=== PATIENT | male | born 1965 | race Caucasian/White ===

== ENCOUNTER 2019-03-12 18:20 | Inpatient (IN) | payer BC ==
--- NOTE | 2019-03-12 18:34 | ER Document Report ---
ED General - General Stated Complaint: HYPOXIA Time Seen by Provider: 03/12/19 18:26 Notes: Patient is a 53-year-old male with CAD, hypertension and hyperlipidemia that presents to the emergency department for chief complaint of respiratory distress after syncopal episode. Per EMS the patient was found by family in the bathroom, is apparently hot there is found to be diaphoretic, and hypoxic, his lips were apparently blue, and he was lethargic. He was apparently in the bathroom and had a large bowel movement and had passed out, there was no air conditioning in that portion of the house per EMS, it is unclear how long he was on the ground for. They placed him on CPAP, and could not get his pulse ox above 77%, they did give him Solu-Medrol as well. Patient is alert and answering questions at this time, he denies having any chest pain, denies recent illness, denies nausea or vomiting, just feels somewhat short of breath and mildly lightheaded. He is currently on the BiPAP. He denies being on any diuretics, denies being on any breathing treatments on a daily basis. Overall he states he is feeling better. Past Medical History: CAD, hypertension, hyperlipidemia Past Surgical History: CABG Social History: Lives at home, denies current alcohol or tobacco use. Family History: Reviewed and noncontributory for presenting illness Allergies: Reviewed, see documented allergy list. REVIEW OF SYSTEMS: Other than noted above, the 12 point review of systems was reviewed with the patient and were negative, all pertinent findings are included in the HPI. PHYSICAL EXAMINATION: Vital signs reviewed, nursing noted reviewed. GENERAL: Patient is in respiratory distress, morbidly obese, currently on CPAP. Diaphoretic HEAD: Atraumatic, normocephalic. EYES: Eyes appear normal, extraocular movements intact, sclera anicteric, conjunctiva are normal. ENT: nares patent, oropharynx clear without exudates. Moist mucous membranes. NECK: Normal range of motion, supple without lymphadenopathy LUNGS: Increased work of breathing, on BiPAP, respiratory distress, diminished lung sounds throughout, crackles noted at the bases. HEART: Heart rate borderline tachycardic, regular rhythm, no audible murmur. ABDOMEN: Soft, obese, nontender, normoactive bowel sounds. No rebound, guarding, or rigidity. No masses appreciated. EXTREMITIES: Nontender, good range of motion, 1+ edema to the proximal tibias bilaterally, equal, no erythema or tenderness. NEUROLOGICAL: No focal neurological deficits. Moves all extremities spontaneously Motor and sensory grossly intact on exam. PSYCH: Normal mood, normal affect. SKIN: Skin is warm, diaphoretic TRAVEL OUTSIDE OF THE [place] IN LAST 30 DAYS: No - Related Data Allergies/Adverse Reactions: No Known Allergies Allergy (Unverified 10/11/15 14:05) Past Medical History - Social History Smoking Status: Never Smoker Family History: Reviewed & Not Pertinent, CVA, Hypertension, Other - OK, Hyperlipidemia. - Past Medical History Cardiac Medical History: Reports: Hx Hypercholesterolemia, Hx Hypertension Physical Exam - Vital signs Vitals: Resp Pulse Ox 32 H 95 03/12/19 18:37 03/12/19 18:37 Course - Re-evaluation Re-evalutation: Patient seen and examined vital signs reviewed. Laboratory data and imaging were ordered as appropriate for the patient's pre senting symptoms and complaint, with consideration of any critical or life threatening conditions that may be associated with their obtained history and exam as noted above. Patient was treated with BiPAP therapy, after reviewing chest x-ray did appear he had a left upper lobe pneumonia, he was started on Zosyn and vancomycin, as this may be aspiration, as the patient was found down, and essentially unresponsive. Results were reviewed when available and demonstrated significant leukocytosis of 19,000, chest x-ray with left upper lobe pneumonia, he had worsened renal function from prior results, but that was back in 2016, his EKG was essentially unchanged from his EKG from 2016. The patient was re-evaluated and was improving on BiPAP, slowly weaning down FiO2, but patient will need admission to the hospital, as he still requiring significant oxygen requirements. Patient's troponin came back at 1.17, this was around where he was 3 years ago, however I believe this is likely due to demand ischemia as the patient was hypoxic at 68% when he was found on the ground and is unclear how long he was down for, patient is not having chest pain and nor did he earlier today, therefore more likely type II non-STEMI. Evaluation was most consistent with acute respiratory failure with hypoxia, pneumonia, leukocytosis, NSTEMI Results were discussed with the patient at this point after careful consideration I feel that that patient should be admitted to the hospital. This was discussed with the patient that it is in the best interest for their care to be admitted for further evaluation and management. Patient agreed with this plan of care. A call was placed to the admitting physician, Dr. Mckeon who graciously accepted the patient onto their service. *Note is created using voice recognition software and may contain spelling, syntax or grammatical errors. Laboratory 03/12/19 03/12/19 03/12/19 18:26 18:26 18:26 WBC 19.7 H RBC 5.06 Hgb 14.2 Hct 43.4 MCV 86 MCH 28.1 MCHC 32.7 RDW 16.2 H Plt Count 272 Seg Neutrophils % 76.0 Lymphocytes % 15.5 Monocytes % 7.5 Eosinophils % 0.2 Basophils % 0.8 Absolute Neutrophils 15.0 H Absolute Lymphocytes 3.1 Absolute Monocytes 1.5 H Absolute Eosinophils 0.0 Absolute Basophils 0.2 PT 15.0 INR 1.17 Carbonic Acid HCO3/H2CO3 Ratio ABG pH ABG pCO2 ABG pO2 ABG HCO3 ABG Total CO2 ABG O2 Saturation ABG Base Excess FiO2 Sodium 134.5 L Potassium 4.2 Chloride 98 Carbon Dioxide 23 Anion Gap 14 BUN 31 H Creatinine 2.35 H Est GFR ( Amer) 35 L Est GFR (Non-Af Amer) 29 L Glucose 202 H Lactic Acid Calcium 8.5 Total Bilirubin 0.9 Direct Bilirubin 0.4 Neonat Total Bilirubin Not Reportable Neonat Direct Bilirubin Not Reportable Neonat Indirect Bili Not Reportable AST 31 ALT 28 Alkaline Phosphatase 73 Troponin I Total Protein 6.1 L Albumin 3.4 L Urine Color Urine Appearance Urine pH Ur Specific [place] Urine Protein Urine Glucose (UA) Urine Ketones Urine Blood Urine Nitrite Urine Bilirubin Urine Urobilinogen Ur Leukocyte Esterase Urine WBC (Auto) Urine RBC (Auto) U Hyaline Cast (Auto) Urine Bacteria (Auto) Squamous Epi Cells Auto Urine Mucus (Auto) Urine Ascorbic Acid 03/12/19 03/12/19 03/12/19 18:26 18:26 18:48 WBC RBC Hgb Hct MCV MCH MCHC RDW Plt Count Seg Neutrophils % Lymphocytes % Monocytes % Eosinophils % Basophils % Absolute Neutrophils Absolute Lymphocytes Absolute Monocytes Absolute Eosinophils Absolute Basophils PT INR Carbonic Acid HCO3/H2CO3 Ratio ABG pH ABG pCO2 ABG pO2 ABG HCO3 ABG Total CO2 ABG O2 Saturation ABG Base Excess FiO2 Sodium Potassium Chloride Carbon Dioxide Anion Gap BUN Creatinine Est GFR ( Amer) Est GFR (Non-Af Amer) Glucose Lactic Acid 2.8 H Calcium Total Bilirubin Direct Bilirubin Neonat Total Bilirubin Neonat Direct Bilirubin Neonat Indirect Bili AST ALT Alkaline Phosphatase Troponin I 1.170 Total Protein Albumin Urine Color ALEX Urine Appearance CLOUDY Urine pH 5.0 Ur Specific [place] 1.021 Urine Protein 100 H Urine Glucose (UA) NEGATIVE Urine Ketones NEGATIVE Urine Blood MODERATE H Urine Nitrite NEGATIVE Urine Bilirubin NEGATIVE Urine Urobilinogen 2.0 H Ur Leukocyte Esterase NEGATIVE Urine WBC (Auto) 8 Urine RBC (Auto) 6 U Hyaline Cast (Auto) 19 Urine Bacteria (Auto) TRACE Squamous Epi Cells Auto 1 Urine Mucus (Auto) OCC Urine Ascorbic Acid NEGATIVE 03/12/19 19:00 WBC RBC Hgb Hct MCV MCH MCHC RDW Plt Count Seg Neutrophils % Lymphocytes % Monocytes % Eosinophils % Basophils % Absolute Neutrophils Absolute Lymphocytes Absolute Monocytes Absolute Eosinophils Absolute Basophils PT INR Carbonic Acid 1.34 HCO3/H2CO3 Ratio 18:1 ABG pH 7.35 ABG pCO2 44.5 ABG pO2 86.1 ABG HCO3 24.2 H ABG Total CO2 25.6 ABG O2 Saturation 96.1 ABG Base Excess -1.5 FiO2 100% Sodium Potassium Chloride Carbon Dioxide Anion Gap BUN Creatinine Est GFR ( Amer) Est GFR (Non-Af Amer) Glucose Lactic Acid Calcium Total Bilirubin Direct Bilirubin Neonat Total Bilirubin Neonat Direct Bilirubin Neonat Indirect Bili AST ALT Alkaline Phosphatase Troponin I Total Protein Albumin Urine Color Urine Appearance Urine pH Ur Specific [place] Urine Protein Urine Glucose (UA) Urine Ketones Urine Blood Urine Nitrite Urine Bilirubin Urine Urobilinogen Ur Leukocyte Esterase Urine WBC (Auto) Urine RBC (Auto) U Hyaline Cast (Auto) Urine Bacteria (Auto) Squamous Epi Cells Auto Urine Mucus (Auto) Urine Ascorbic Acid Chest X-Ray 03/12/19 18:27 IMPRESSION: Left upper lobe pneumonia. - Vital Signs Vital signs: Temp Pulse Resp BP Pulse Ox 32 H 95 03/12/19 18:37 03/12/19 18:37 - Laboratory Result Diagrams: 03/12/19 18:26 03/12/19 18:26 Laboratory results interpreted by me: 03/12/19 03/12/19 03/12/19 18:26 18:26 18:26 WBC 19.7 H RDW 16.2 H Absolute Neutrophils 15.0 H Absolute Monocytes 1.5 H ABG HCO3 Sodium 134.5 L BUN 31 H Creatinine 2.35 H Est GFR ( Amer) 35 L Est GFR (Non-Af Amer) 29 L Glucose 202 H Lactic Acid 2.8 H Total Protein 6.1 L Albumin 3.4 L Urine Protein Urine Blood Urine Urobilinogen 03/12/19 03/12/19 18:48 19:00 WBC RDW Absolute Neutrophils Absolute Monocytes ABG HCO3 24.2 H Sodium BUN Creatinine Est GFR ( Amer) Est GFR (Non-Af Amer) Glucose Lactic Acid Total Protein Albumin Urine Protein 100 H Urine Blood MODERATE H Urine Urobilinogen 2.0 H - EKG Interpretation by Me Additional EKG results interpreted by me: EKG demonstrates sinus rhythm with a ventricular rate of 97 bpm, normal axis, normal intervals, there is ST depression in leads I and aVL, no ST elevation, this is compared with a prior EKG from 10/11/2015, without significant change. Critical Care Note - Critical Care Note Total time excluding time spent on procedures (mins): 38 Comments: Critical care time 38 minutes exclusive from separate billable procedures for a patient requiring complex medical decision making, and high potential for clinical deterioration. In a patient with acute respiratory failure requiring noninvasive positive pressure ventilation, severe hypoxia. Time spent obtaining history from patient or surrogate, discussions with consultants, development of treatment plan with patient or surrogate, evaluation of patient's response to treatment, examination of patient, ordering and performing treatments and interventions, ordering and review of laboratory studies, re-evaluation of patient's condition, ordering and review of radiographic studies and review of old charts Discharge - Discharge Clinical Impression: Acute respiratory failure with hypoxia, NSTEMI (non-ST elevated myocardial infarction) Left upper lobe pneumonia Qualifiers: Pneumonia type: due to unspecified organism Qualified Code(s): J18.1 - Lobar pneumonia, unspecified organism Leukocytosis Qualifiers: Leukocytosis type: unspecified Qualified Code(s): D72.829 - Elevated white blood cell count, unspecified Condition: Serious Disposition: ADMITTED INPATIENT Admitting Provider: Mike (Hospitalist) Unit Admitted: ICU
[2019-03-12 18:53] LABS: ABSOLUTE BASOPHILS # (AUTO) 0.2 10^3/uL (0.0-0.2); ABSOLUTE LYMPHOCYTES (AUTO) 3.1 10^3/uL (0.5-4.7); ABSOLUTE MONOCYTES (AUTO) 1.5 10^3/uL (0.1-1.4); BASOPHILS % (AUTO) 0.8 % (0-2); EOSINOPHILS % (AUTO) 0.2 % (0-6); HEMATOCRIT 43.4 % (37.9-51.0); HEMOGLOBIN 14.2 g/dL (13.5-17.0); LYMPHOCYTES % (AUTO) 15.5 % (13-45); MEAN CORPUSCULAR HEMOGLOBIN 28.1 pg (27.0-33.4); MEAN CORPUSCULAR HGB CONC 32.7 g/dL (32.0-36.0); MEAN CORPUSCULAR VOLUME 86 fl (80-97); MONOCYTES % (AUTO) 7.5 % (3-13); PLATELET COUNT 272 10^3/uL (150-450); RED BLOOD COUNT 5.06 10^6/uL (4.35-5.55); RED CELL DISTRIBUTION WIDTH 16.2 % (11.5-14.0); TOTAL CELLS COUNTED % (AUTO) 100 %; WHITE BLOOD COUNT 19.7 10^3/uL (4.0-10.5)
[2019-03-12 18:59] LABS: INTERNATIONAL RATION (INR) 1.17
--- NOTE | 2019-03-12 19:04 | RADIOLOGY REPORT (SQ) ---
EXAM DESCRIPTION: CHEST SINGLE VIEW COMPLETED DATE/TIME: 03/12/2019 6:41 pm REASON FOR STUDY: respiratory distress COMPARISON: None. EXAM PARAMETERS: NUMBER OF VIEWS: One view. TECHNIQUE: Single frontal radiographic view of the chest acquired. RADIATION DOSE: NA LIMITATIONS: None. FINDINGS: LUNGS AND PLEURA: Abnormal airspace opacity with air bronchograms in the left upper lobe. The right lung is clear. MEDIASTINUM AND HILAR STRUCTURES: No masses. Contour normal. HEART AND VASCULAR STRUCTURES: Heart normal in size. Normal vasculature. BONES: No acute findings. HARDWARE: CABG. OTHER: No other significant finding. IMPRESSION: Left upper lobe pneumonia. TECHNICAL DOCUMENTATION: JOB ID: [id number] [employer]- All Rights Reserved Reading location - IP/workstation name: [email or web address]
[2019-03-12 19:08] LABS: ALBUMIN 3.4 g/dL (3.5-5.0); ALKALINE PHOSPHATASE 73 U/L (38-126); ANION GAP 14 (5-19); ASPARTATE AMINO TRANSFERASE 31 U/L (17-59); BILIRUBIN,DIRECT 0.4 mg/dL (0.0-0.4); BILIRUBIN,TOTAL 0.9 mg/dL (0.2-1.3); BLOOD UREA NITROGEN 31 mg/dL (7-20); CALCIUM 8.5 mg/dL (8.4-10.2); CARBON DIOXIDE 23 mmol/L (22-30); CHLORIDE 98 mmol/L (98-107); GLUCOSE 202 mg/dL (75-110); POTASSIUM 4.2 mmol/L (3.6-5.0); TOTAL PROTEIN 6.1 g/dL (6.3-8.2)
[2019-03-12] MEDS ORDERED: PIPERACILLIN/TAZOBACTAM 4.5 GM VIAL IV ONE (19:12)
[2019-03-12] MEDS ORDERED: VANCOMYCIN HCL INJ 1000 MG VIAL IV ONE (19:12)
[2019-03-12 19:16] LABS: APPEARANCE,URINE CLOUDY; BILIRUBIN,URINE NEGATIVE (NEGATIVE); COLOR,URINE AMBER; GLUCOSE, URINE NEGATIVE (NEGATIVE); KETONES,URINE NEGATIVE (NEGATIVE); LEUKOCYTE ESTERASE,URINE NEGATIVE (NEGATIVE); NITRITE,URINE NEGATIVE (NEGATIVE); PROTEIN,URINE 100 mg/dL (NEGATIVE); URINE SPECIFIC GRAVITY 1.021
[2019-03-12 19:21] LABS: ARTERIAL BLOOD BASE EXCESS -1.5 mmol/L; ARTERIAL BLOOD H2CO3 1.34 mmol/L (1.05-1.35); ARTERIAL BLOOD HCO3 24.2 mmol/L (20-24); ARTERIAL BLOOD O2 SATURATION 96.1 % (94-98); ARTERIAL BLOOD PCO2 44.5 mmHg (35-45); ARTERIAL BLOOD PH 7.35 (7.35-7.45); ARTERIAL BLOOD PO2 86.1 mmHg (80-100); ARTERIAL BLOOD TOTAL CO2 25.6 mmol/L (23-27)
[2019-03-12 19:22] LABS: ARTERIAL BLOOD FIO2 100%
[2019-03-12] MEDS ORDERED: ASPIRIN 81 MG TABLET, CHEWABLE PO ONE (19:29)
[2019-03-12] MEDS ORDERED: NORMAL SALINE 500 ML IV ONE (19:30)
--- NOTE | 2019-03-12 19:58 | EKG REPORT ---
SEVERITY:- ABNORMAL ECG - SINUS RHYTHM PROBABLE INFERIOR INFARCT, AGE INDETERMINATE : Confirmed by: Sheila Sage MD 12-Mar-2019 19:58:07
[2019-03-12] MEDS ORDERED: TEMAZEPAM 15 MG CAPSULE PO PRN (20:33)
[2019-03-12] MEDS ORDERED: ONDANSETRON HCL INJ/PF 4 MG/2 ML SDV IV PRN (20:33)
[2019-03-12] MEDS ORDERED: DEXTROSE 5%-LACTATED RINGERS 1,000 ML IV PRN (20:33)
[2019-03-12] MEDS ORDERED: MAG HYDROX/AL HYDROX/SIMETH SUSP 30 ML UDCUP PO PRN (20:33)
[2019-03-12] MEDS ORDERED: LEVALBUTEROL HCL NEB 0.63 MG/3 ML AMPUL NEB PRN (20:33)
[2019-03-12] MEDS ORDERED: MAGNESIUM HYDROXIDE SUSP 30 ML UDCUP PO PRN (20:33)
[2019-03-12] MEDS ORDERED: ACETAMINOPHEN 325 MG TABLET PO PRN (21:01)
[2019-03-12] MEDS ORDERED: RINGERS SOLUTION,LACTATED 1,000 ML IV ONE (21:01)
[2019-03-12] MEDS ORDERED: NALBUPHINE HCL INJ 10 MG/1 ML AMPULE IV PRN (21:01)
[2019-03-12] MEDS ORDERED: FAMOTIDINE INJ/PF 20 MG/2 ML SDV IV SCH (22:00)
[2019-03-12] MEDS: GUAIFENESIN 600 MG TABLET.SA PO SCH (22:11)
[2019-03-12] MEDS: ENOXAPARIN SODIUM INJ 100 MG/1 ML DISP.SYRIN SUBCUT SCH (22:11)
[2019-03-12] MEDS ORDERED: NITROGLYCERIN 0.4 MG/TAB 25 TAB/BOTTLE SL PRN (22:16)
[2019-03-12] MEDS ORDERED: DEXTROSE 40% GEL 15 GM TUBE PO PRN ×2 (23:36)
[2019-03-12] MEDS ORDERED: DEXTROSE 50%-WATER 25 GM/50 ML DISP.SYRIN IV PRN ×2 (23:36)
[2019-03-12] MEDS ORDERED: GLUCAGON,HUMAN RECOMB 1 MG INJ IM PRN (23:36)
[2019-03-13 02:32] LABS: CREATINE KINASE MB 4.76 ng/mL (<4.55)
[2019-03-13 02:38] LABS: TROPONIN I 1.35 ng/mL
[2019-03-13] MEDS: RINGERS SOLUTION,LACTATED 1,000 ML IV PRN ×5 (03:32→23:12)
--- NOTE | 2019-03-13 03:44 | PDOC H&P ---
History of Present Illness Admission Date/PCP: 03/12/19 19:39 SOFIA FORTUNE MD Patient complains of: Syncopal episode History of Present Illness: SLICK SIMMONS is a 53 year old male who presents the emergency room with an acute syncopal episode. The patient was found on the floor, by his family, in his bathroom after an apparent syncopal episode while on the stool after he had passed a very large bowel movement. His family noted that he was very sweaty, lethargic and dusky colored with blue lips upon discovery. EMS was summoned to the non-air conditioned residence and found him to be very hypoxic with an O2 sat of 77%. He was placed on CPAP and was given Solu-Medrol IV. His level of consciousness improved significantly during his transit to the emergency room. He admits feeling a little short of breath and lightheaded but does not remember the syncopal episode or events until waking during the ride to the hospital. He denies other associated or accompanying symptoms. In the emergency room he was found to continue to be hypoxic and was placed on BiPAP with an FiO2 of 100% resulting in an O2 sat of 95 to 96%. He was found to have an elevated troponin 1.1, a lactate at 2.8, a white blood count of 19,000 and a left upper lobe pneumonia on his chest x-ray. Patient was subsequently admitted to the ICU for further evaluation and treatment. Past Medical History Cardiac Medical History: Reports: Coronary Artery Disease, Hyperlipidema, Hypertension Denies: Atrial Fibrillation, Congestive Heart Failure, Myocardial Infarction Pulmonary Medical History: Denies: Asthma, Chronic Obstructive Pulmonary Disease (COPD), Respiratory Failure EENT Medical History: Denies: Cataracts, Ears - Hearing aids Neurological Medical History: Denies: Hemorrhagic CVA, Ischemic CVA, Multiple Sclerosis, Seizures Endocrine Medical History: Denies: Diabetes Mellitus Type 1, Diabetes Mellitus Type 2, Hyperthyroidism, Hypothyroidism Renal/ Medical History: Denies: Chronic Kidney Disease, Nephrolithiasis Malignancy Medical History: Reports: None GI Medical History: Denies: Cirrhosis, Crohn's Disease, Hepatitis, Ulcerative Colitis Musculoskeltal Medical History: Denies: Arthritis, Gout Skin Medical History: Denies: Eczema, Psoriasis Psychiatric Medical History: Denies: Alcohol Dependency, Substance Abuse, Tobacco Dependency Traumatic Medical History: Reports: None Hematology: Denies: Anemia, Bleeding Tendencies Infectious Medical History: Reports: None Past Surgical History Past Surgical History: Reports: Cardiac Catheterization, Coronary Artery Bypass Graft Social History Information Source: Patient Lives with: Friend Smoking Status: Never Smoker Frequency of Alcohol Use: None Hx Recreational Drug Use: No Drugs: None Hx Prescription Drug Abuse: No - Advance Directive Resuscitation Status: Full Code Surrogate healthcare decision maker:: Zachary Cummins Family History Family History: CAD, CVA, DM, Hyperlipidemia, Hypertension, Malignancy Parental Family History Reviewed: Yes Children Family History Reviewed: No Sibling(s) Family History Reviewed.: Yes Medication/Allergy Home Medications: Aspirin [Ecotrin 81 mg EC Tablet] 81 mg PO DAILY 03/12/19 Atorvastatin Calcium [Lipitor 80 mg Tablet] 80 mg PO QHS 03/12/19 Chlorthalidone [Hygroton 25 mg Tablet] 25 mg PO DAILY 03/12/19 Ezetimibe 10 mg PO QHS 03/12/19 Lisinopril 20 mg PO DAILY 03/12/19 Metoprolol Succinate [Toprol Xl 50 mg Tab.sr] 50 mg PO DAILY 03/12/19 Nitroglycerin [Nitrostat 0.4 mg (1/150 Gr) Tabs 25/Bottle] 1 tab SL Q5MP PRN 03/12/19 Sildenafil Citrate [Viagra] 100 mg PO ASDIR PRN 03/12/19 Allergies/Adverse Reactions: No Known Allergies Allergy (Unverified 10/11/15 14:05) Review of Systems Constitutional: ABSENT: chills, fever(s) Eyes: ABSENT: visual disturbances, other - Ocular pain Ears: ABSENT: hearing changes, other - Ear pain Nose, Mouth, and Throat: ABSENT: mouth pain, sore throat Cardiovascular: ABSENT: chest pain, palpitations Respiratory: ABSENT: cough, dyspnea Gastrointestinal: ABSENT: abdominal pain, constipation, diarrhea, hematochezia, melena, nausea, vomiting Genitourinary: ABSENT: dysuria, hematuria Musculoskeletal: ABSENT: back pain, joint swelling, muscle weakness Integumentary: ABSENT: pruritus, rash Neurological: ABSENT: confusion, convulsions, focal weakness, memory loss, syncope Psychiatric: ABSENT: anxiety, depression Endocrine: ABSENT: cold intolerance, heat intolerance Hematologic/Lymphatic: ABSENT: easy bleeding, easy bruising Physical Exam Vital Signs: Temp Pulse Resp BP Pulse Ox 32 H 107/68 96 03/12/19 20:01 03/12/19 20:01 03/12/19 20:01 General appearance: PRESENT: no acute distress, cooperative, morbidly obese, other - On BiPAP Head exam: PRESENT: atraumatic, normocephalic Eye exam: PRESENT: conjunctiva pink. ABSENT: conjunctival injection, nystagmus, scleral icterus Ear exam: PRESENT: normal external ear exam. ABSENT: bleeding, drainage Mouth exam: PRESENT: dry mucosa, neck supple Neck exam: ABSENT: JVD, thyromegaly, tracheal deviation Respiratory exam: PRESENT: rales - Coarse rales noted in the left upper chest on auscultation., symmetrical, other - On BiPAP Cardiovascular exam: PRESENT: RRR. ABSENT: clicks, gallop, rubs Pulses: PRESENT: normal radial pulses, normal dorsalis pedis pul Vascular exam: PRESENT: normal capillary refill. ABSENT: pallor GI/Abdominal exam: PRESENT: normal bowel sounds, soft. ABSENT: tenderness Rectal exam: PRESENT: deferred Extremities exam: ABSENT: joint swelling, pedal edema, tenderness Musculoskeletal exam: PRESENT: full ROM, normal inspection Neurological exam: PRESENT: alert, oriented to person, oriented to place, oriented to time, oriented to situation, CN II-XII grossly intact. ABSENT: motor sensory deficit Psychiatric exam: PRESENT: appropriate affect, normal mood Skin exam: PRESENT: dry, intact, warm. ABSENT: jaundice, rash, urticaria Results Laboratory Results: 03/12/19 18:26 03/12/19 18:26 03/12/19 03/12/19 03/12/19 18:26 18:26 18:26 WBC 19.7 H RBC 5.06 Hgb 14.2 Hct 43.4 MCV 86 MCH 28.1 MCHC 32.7 RDW 16.2 H Plt Count 272 Seg Neutrophils % 76.0 Lymphocytes % 15.5 Monocytes % 7.5 Eosinophils % 0.2 Basophils % 0.8 Absolute Neutrophils 15.0 H Absolute Lymphocytes 3.1 Absolute Monocytes 1.5 H Absolute Eosinophils 0.0 Absolute Basophils 0.2 Carbonic Acid HCO3/H2CO3 Ratio ABG pH ABG pCO2 ABG pO2 ABG HCO3 ABG O2 Saturation ABG Base Excess FiO2 Sodium 134.5 L Potassium 4.2 Chloride 98 Carbon Dioxide 23 Anion Gap 14 BUN 31 H Creatinine 2.35 H Est GFR ( Amer) 35 L Est GFR (Non-Af Amer) 29 L Glucose 202 H Lactic Acid 2.8 H Calcium 8.5 Total Bilirubin 0.9 AST 31 Alkaline Phosphatase 73 Total Protein 6.1 L Albumin 3.4 L Urine Color Urine Appearance Urine pH Ur Specific [place] Urine Protein Urine Glucose (UA) Urine Ketones Urine Blood Urine Nitrite Ur Leukocyte Esterase Urine WBC (Auto) Urine RBC (Auto) 03/12/19 03/12/19 18:48 19:00 WBC RBC Hgb Hct MCV MCH MCHC RDW Plt Count Seg Neutrophils % Lymphocytes % Monocytes % Eosinophils % Basophils % Absolute Neutrophils Absolute Lymphocytes Absolute Monocytes Absolute Eosinophils Absolute Basophils Carbonic Acid 1.34 HCO3/H2CO3 Ratio 18:1 ABG pH 7.35 ABG pCO2 44.5 ABG pO2 86.1 ABG HCO3 24.2 H ABG O2 Saturation 96.1 ABG Base Excess -1.5 FiO2 100% Sodium Potassium Chloride Carbon Dioxide Anion Gap BUN Creatinine Est GFR ( Amer) Est GFR (Non-Af Amer) Glucose Lactic Acid Calcium Total Bilirubin AST Alkaline Phosphatase Total Protein Albumin Urine Color ALEX Urine Appearance CLOUDY Urine pH 5.0 Ur Specific [place] 1.021 Urine Protein 100 H Urine Glucose (UA) NEGATIVE Urine Ketones NEGATIVE Urine Blood MODERATE H Urine Nitrite NEGATIVE Ur Leukocyte Esterase NEGATIVE Urine WBC (Auto) 8 Urine RBC (Auto) 6 03/12/19 18:26 Troponin I 1.170 Impressions: Chest X-Ray 03/12/19 18:27 IMPRESSION: Left upper lobe pneumonia. Assessment and Plan - Diagnosis (1) Episode of syncope Qualifiers: Syncope type: unspecified Qualified Code(s): R55 - Syncope and collapse Is this a current diagnosis for this admission?: Yes Plan: Patient will be evaluated for syncope with vagal and cardiac etiologies immediately apparent. A cardiology consultation with Dr. Sage will be obtained to direct further evaluation of the patient's syncope. (2) NSTEMI (non-ST elevated myocardial infarction) Is this a current diagnosis for this admission?: Yes Plan: Serial cardiac enzymes and EKGs will be obtained. A cardiology consultation with Dr. Sage will be obtained to direct further evaluation. (3) Left upper lobe pneumonia Qualifiers: Pneumonia type: due to unspecified organism Qualified Code(s): J18.1 - Lobar pneumonia, unspecified organism Is this a current diagnosis for this admission?: Yes Plan: Patient will be treated for a community-acquired pneumonia using Zithromax and Rocephin IV. He will additionally receive a pulmonary toilet utilizing Mucomyst with Xopenex twice daily. (4) Acute respiratory failure with hypoxia Is this a current diagnosis for this admission?: Yes Plan: Patient will be treated with oxygen delivered via noninvasive methods to sustain an O2 sat greater than 93%. Further intervention will be determined if required. BiPAP will be continued as long as it is providing adequate oxygenation with settings to be adjusted as required by RT. (5) SIRS (systemic inflammatory response syndrome) Is this a current diagnosis for this admission?: Yes Plan: Patient has a identified source of infection (left upper lobe pneumonia) and an elevated white blood count with an elevated lactic acid. Serial lactic acids will be obtained and the patient's white blood count will be followed closely. Patient will be observed closely in the ICU for any further evidence of possible sepsis. (6) DULCE (acute kidney injury) Is this a current diagnosis for this admission?: Yes Plan: Patient will be treated with IV fluids and renal functions will be monitored on a daily basis with a metabolic profile and magnesium levels. Nephrology consult ation will be obtained if needed. Additionally medications potentially toxic to the kidney including lisinopril and Hygroton will be discontinued. (7) Hyperglycemia Is this a current diagnosis for this admission?: Yes Plan: Hemoglobin A1c will be obtained to evaluate the patient for possible diabetes. - Time Time Spent with patient: 35 or more minutes Medications reviewed and adjusted accordingly: Yes Anticipated discharge: Home - Inpatient Certification Based on my medical assessment, after consideration of the patient's comorbidities, presenting symptoms, or acuity I expect that the services needed warrant INPATIENT care.: Yes I certify that my determination is in accordance with my understanding of Medicare's requirements for reasonable and necessary INPATIENT services [42 CFR 412.3e].: Yes Medical Necessity: Significant Comorbidiites Make Outpatient Treatment Too Risky, Need Close Monitoring Due to Risk of Patient Decompensation, Need For Continuous Telemetry Monitoring, Need for Nebulizer Therapy and Monitoring of Response, Need for IV Antibiotics, Risk of Complication if Not Cared For in Hospital, Risk of Diagnosis Which Will Require Inpatient Eval/Care/Monitoring
[2019-03-13 05:51] LABS: ALBUMIN 3.4 g/dL (3.5-5.0); ALKALINE PHOSPHATASE 70 U/L (38-126); ANION GAP 11 (5-19); ASPARTATE AMINO TRANSFERASE 30 U/L (17-59); BILIRUBIN,DIRECT 0.3 mg/dL (0.0-0.4); BILIRUBIN,TOTAL 0.8 mg/dL (0.2-1.3); BLOOD UREA NITROGEN 38 mg/dL (7-20); CALCIUM 8.9 mg/dL (8.4-10.2); CARBON DIOXIDE 26 mmol/L (22-30); CHLORIDE 98 mmol/L (98-107); CREATINE KINASE 383 U/L (55-170); GLUCOSE 156 mg/dL (75-110); POTASSIUM 4.9 mmol/L (3.6-5.0); TOTAL PROTEIN 6.3 g/dL (6.3-8.2)
[2019-03-13 05:55] LABS: HEMATOCRIT 41.5 % (37.9-51.0); HEMOGLOBIN 13.7 g/dL (13.5-17.0); MEAN CORPUSCULAR HEMOGLOBIN 28.3 pg (27.0-33.4); MEAN CORPUSCULAR HGB CONC 33.1 g/dL (32.0-36.0); MEAN CORPUSCULAR VOLUME 86 fl (80-97); PLATELET COUNT 218 10^3/uL (150-450); RED BLOOD COUNT 4.85 10^6/uL (4.35-5.55); RED CELL DISTRIBUTION WIDTH 16.1 % (11.5-14.0); WHITE BLOOD COUNT 18.9 10^3/uL (4.0-10.5)
[2019-03-13 05:58] LABS: CREATINE KINASE MB 5.27 ng/mL (<4.55)
[2019-03-13 06:16] LABS: ARTERIAL BLOOD BASE EXCESS -2.6 mmol/L; ARTERIAL BLOOD FIO2 80%; ARTERIAL BLOOD H2CO3 1.48 mmol/L (1.05-1.35); ARTERIAL BLOOD HCO3 24.2 mmol/L (20-24); ARTERIAL BLOOD O2 SATURATION 93.9 % (94-98); ARTERIAL BLOOD PCO2 49.2 mmHg (35-45); ARTERIAL BLOOD PH 7.31 (7.35-7.45); ARTERIAL BLOOD PO2 75.7 mmHg (80-100); ARTERIAL BLOOD TOTAL CO2 25.7 mmol/L (23-27)
[2019-03-13 06:23] LABS: CHOLESTEROL 142.74 mg/dL (0-200); TRIGLYCERIDES 113 mg/dL (<150); VLDL CHOLESTEROL 22.6 mg/dL (10-31)
[2019-03-13 06:25] LABS: INTERNATIONAL RATION (INR) 1.17
[2019-03-13 06:34] LABS: DIRECT LDL 110 mg/dL (<100)
[2019-03-13] MEDS: PANTOPRAZOLE SODIUM 40 MG TABLET.DR PO SCH ×2 (06:38→17:13)
[2019-03-13 06:45] LABS: TROPONIN I 1.09 ng/mL
[2019-03-13] MEDS: AZITHROMYCIN 500 MG in DEXTROSE 5%-WATER 250 ML IV SCH (08:07)
[2019-03-13] MEDS: INSULIN REG, HUMAN 100 UNIT/ML 3 ML VIAL (PYX) SUBCUT SCH ×4 (09:20→21:35)
[2019-03-13] MEDS: ENOXAPARIN SODIUM INJ 100 MG/1 ML DISP.SYRIN SUBCUT SCH (09:20)
[2019-03-13] MEDS: CLOPIDOGREL BISULFATE 75 MG TABLET PO SCH (09:21)
[2019-03-13] MEDS: GUAIFENESIN 600 MG TABLET.SA PO SCH ×2 (09:21→21:27)
[2019-03-13] MEDS: LOSARTAN POTASSIUM 50 MG TABLET PO SCH (09:21)
[2019-03-13] MEDS: DOCUSATE SODIUM 100 MG CAPSULE PO SCH ×2 (09:21→17:13)
[2019-03-13] MEDS: ASPIRIN 81 MG TABLET, ENT COATED PO SCH (09:21)
[2019-03-13] MEDS: METOPROLOL SUCCINATE 50 MG TAB.SR.24H PO SCH (09:21)
--- NOTE | 2019-03-13 09:53 | RADIOLOGY REPORT (SQ) ---
EXAM DESCRIPTION: CHEST SINGLE VIEW COMPLETED DATE/TIME: 03/13/2019 9:44 am REASON FOR STUDY: Left upper lobe pneumonia COMPARISON: 03/12/2019. EXAM PARAMETERS: NUMBER OF VIEWS: One view. TECHNIQUE: Single frontal radiographic view of the chest acquired. RADIATION DOSE: NA LIMITATIONS: None. FINDINGS: LUNGS AND PLEURA: Persistent patchy airspace disease within the left upper lobe, not signi ficantly changed from prior. No new airspace disease, pleural effusion or pneumothorax. MEDIASTINUM AND HILAR STRUCTURES: No masses. Contour normal. HEART AND VASCULAR STRUCTURES: Heart normal in size. Normal vasculature. BONES: No acute findings. HARDWARE: Median sternotomy changes. OTHER: No other significant finding. IMPRESSION: Persistent patchy airspace disease within the left upper lobe compatible with pneumonia. TECHNICAL DOCUMENTATION: JOB ID: [id number] [employer]- All Rights Reserved Reading location - IP/workstation name: [email or web address]
[2019-03-13] MEDS ORDERED: ASPIRIN 325 MG TABLET PO SCH (10:00)
[2019-03-13] MEDS: CEFTRIAXONE 1 GM/D5W RTU 1 GM/50 ML RTUPB IV SCH (10:06)
[2019-03-13 12:24] LABS: CREATINE KINASE MB 5.65 ng/mL (<4.55)
--- NOTE | 2019-03-13 12:24 | PDOC PROGRESS REPORT ---
Subjective Progress Note for:: 03/13/19 Subjective:: Mr. Knight is resting comfortably in bed. His daughters at the bedside. His lunch tray is on the bedside table but he has not attempted to eat yet. He is currently not having any chest pain. He is able to tolerate high flow nasal cannula for short periods of time but is spending most of the time on BiPAP. He appears quite comfortable on the BiPAP at this time. Reason For Visit: N STEMI, SYNCOPAL EPISODE, SIRS, PNEUMONIA Physical Exam Vital Signs: Temp Pulse Resp BP Pulse Ox 98.2 F 80 23 H 105/73 98 03/13/19 08:00 03/13/19 10:00 03/13/19 11:04 03/13/19 10:08 03/13/19 11:04 Intake & Output 03/12/19 03/13/19 03/14/19 06:59 06:59 06:59 Intake Total 2500 1300 Output Total 270 275 Balance 2230 1025 Weight 190.5 kg General appearance: PRESENT: no acute distress, cooperative, morbidly obese, we ll-developed Head exam: PRESENT: atraumatic, normocephalic Eye exam: PRESENT: conjunctiva pink, PERRLA. ABSENT: scleral icterus Ear exam: PRESENT: normal external ear exam. ABSENT: bleeding, drainage Mouth exam: PRESENT: other - BiPAP mask in place Respiratory exam: PRESENT: rhonchi - Faint rhonchi on the left, symmetrical, unlabored. ABSENT: accessory muscle use, rales, tachypnea Cardiovascular exam: PRESENT: RRR, +S1, +S2, other - Distant heart sounds GI/Abdominal exam: PRESENT: normal bowel sounds, soft, other - Pendulous abdomen. ABSENT: guarding, tenderness Rectal exam: PRESENT: deferred Extremities exam: ABSENT: joint swelling, pedal edema, tenderness Musculoskeletal exam: PRESENT: normal inspection Neurological exam: PRESENT: alert, awake, oriented to person, oriented to place, oriented to time, oriented to situation, CN II-XII grossly intact Psychiatric exam: PRESENT: appropriate affect, normal mood. ABSENT: agitated, anxious Focused psych exam: ABSENT: delusional, restlessness Skin exam: PRESENT: dry, normal color, warm. ABSENT: rash Results Laboratory Results: 03/13/19 05:09 03/13/19 05:09 03/12/19 03/12/1919 18:26 18:26 18:26 WBC 19.7 H RBC 5.06 Hgb 14.2 Hct 43.4 MCV 86 MCH 28.1 MCHC 32.7 RDW 16.2 H Plt Count 272 Seg Neutrophils % 76.0 Lymphocytes % 15.5 Monocytes % 7.5 Eosinophils % 0.2 Basophils % 0.8 Absolute Neutrophils 15.0 H Absolute Lymphocytes 3.1 Absolute Monocytes 1.5 H Absolute Eosinophils 0.0 Absolute Basophils 0.2 Carbonic Acid HCO3/H2CO3 Ratio ABG pH ABG pCO2 ABG pO2 ABG HCO3 ABG O2 Saturation ABG Base Excess FiO2 Sodium 134.5 L Potassium 4.2 Chloride 98 Carbon Dioxide 23 Anion Gap 14 BUN 31 H Creatinine 2.35 H Est GFR ( Amer) 35 L Est GFR (Non-Af Amer) 29 L Glucose 202 H Lactic Acid 2.8 H Calcium 8.5 Magnesium Total Bilirubin 0.9 AST 31 Alkaline Phosphatase 73 Total Protein 6.1 L Albumin 3.4 L Triglycerides Cholesterol LDL Cholesterol Direct VLDL Cholesterol HDL Cholesterol Urine Color Urine Appearance Urine pH Ur Specific [place] Urine Protein Urine Glucose (UA) Urine Ketones Urine Blood Urine Nitrite Ur Leukocyte Esterase Urine WBC (Auto) Urine RBC (Auto) 03/12/19 03/12/19 03/12/19 18:48 19:00 21:25 WBC RBC Hgb Hct MCV MCH MCHC RDW Plt Count Seg Neutrophils % Lymphocytes % Monocytes % Eosinophils % Basophils % Absolute Neutrophils Absolute Lymphocytes Absolute Monocytes Absolute Eosinophils Absolute Basophils Carbonic Acid 1.34 HCO3/H2CO3 Ratio 18:1 ABG pH 7.35 ABG pCO2 44.5 ABG pO2 86.1 ABG HCO3 24.2 H ABG O2 Saturation 96.1 ABG Base Excess -1.5 FiO2 100% Sodium Potassium Chloride Carbon Dioxide Anion Gap BUN Creatinine Est GFR ( Amer) Est GFR (Non-Af Amer) Glucose Lactic Acid 2.4 H Calcium Magnesium Total Bilirubin AST Alkaline Phosphatase Total Protein Albumin Triglycerides Cholesterol LDL Cholesterol Direct VLDL Cholesterol HDL Cholesterol Urine Color ALEX Urine Appearance CLOUDY Urine pH 5.0 Ur Specific [place] 1.021 Urine Protein 100 H Urine Glucose (UA) NEGATIVE Urine Ketones NEGATIVE Urine Blood MODERATE H Urine Nitrite NEGATIVE Ur Leukocyte Esterase NEGATIVE Urine WBC (Auto) 8 Urine RBC (Auto) 6 03/13/19 03/13/19 03/13/19 01:48 04:23 05:09 WBC RBC Hgb Hct MCV MCH MCHC RDW Plt Count Seg Neutrophils % Lymphocytes % Monocytes % Eosinophils % Basophils % Absolute Neutrophils Absolute Lymphocytes Absolute Monocytes Absolute Eosinophils Absolute Basophils Carbonic Acid 1.48 H HCO3/H2CO3 Ratio 16:1 ABG pH 7.31 L ABG pCO2 49.2 H ABG pO2 75.7 L ABG HCO3 24.2 H ABG O2 Saturation 93.9 L ABG Base Excess -2.6 FiO2 80% Sodium Potassium Chloride Carbon Dioxide Anion Gap BUN Creatinine Est GFR ( Amer) Est GFR (Non-Af Amer) Glucose Lactic Acid 2.7 H 2.0 Calcium Magnesium Total Bilirubin AST Alkaline Phosphatase Total Protein Albumin Triglycerides Cholesterol LDL Cholesterol Direct VLDL Cholesterol HDL Cholesterol Urine Color Urine Appearance Urine pH Ur Specific [place] Urine Protein Urine Glucose (UA) Urine Ketones Urine Blood Urine Nitrite Ur Leukocyte Esterase Urine WBC (Auto) Urine RBC (Auto) 03/13/19 03/13/19 05:09 05:09 WBC 18.9 H RBC 4.85 Hgb 13.7 Hct 41.5 MCV 86 MCH 28.3 MCHC 33.1 RDW 16.1 H Plt Count 218 Seg Neutrophils % Lymphocytes % Monocytes % Eosinophils % Basophils % Absolute Neutrophils Absolute Lymphocytes Absolute Monocytes Absolute Eosinophils Absolute Basophils Carbonic Acid HCO3/H2CO3 Ratio ABG pH ABG pCO2 ABG pO2 ABG HCO3 ABG O2 Saturation ABG Base Excess FiO2 Sodium 134.6 L Potassium 4.9 Chloride 98 Carbon Dioxide 26 Anion Gap 11 BUN 38 H Creatinine 2.36 H Est GFR ( Amer) 35 L Est GFR (Non-Af Amer) 29 L Glucose 156 H Lactic Acid Calcium 8.9 Magnesium 2.0 Total Bilirubin 0.8 AST 30 Alkaline Phosphatase 70 Total Protein 6.3 Albumin 3.4 L Triglycerides 113 Cholesterol 142.74 LDL Cholesterol Direct 110 H VLDL Cholesterol 22.6 HDL Cholesterol 37 L Urine Color Urine Appearance Urine pH Ur Specific [place] Urine Protein Urine Glucose (UA) Urine Ketones Urine Blood Urine Nitrite Ur Leukocyte Esterase Urine WBC (Auto) Urine RBC (Auto) 03/12/19 03/13/19 03/13/19 18:26 01:48 01:48 Creatine Kinase 407 H CK-MB (CK-2) 4.76 H Troponin I 1.170 1.350 NT-Pro-B Natriuret Pep 03/13/19 03/13/19 03/13/19 05:09 05:09 11:37 Creatine Kinase 383 H 346 H CK-MB (CK-2) 5.27 H Troponin I 1.090 NT-Pro-B Natriuret Pep 6370 H Impressions: Chest X-Ray 03/13/19 00:00 IMPRESSION: Persistent patchy airspace disease within the left upper lobe compatible with pneumonia. Assessment and Plan - Diagnosis (1) Episode of syncope Qualifiers: Syncope type: unspecified Qualified Code(s): R55 - Syncope and collapse Is this a current diagnosis for this admission?: Yes Plan: 03/13/2019-the patient elaborated on his illness over the last 5 to 6 days. On Monday he had food poisoning. This caused nausea, vomiting and significant diarrhea. For approximately 3 to 4 days he was unable to hold down much food and limited liquids. He used Gatorade to keep up with electrolytes. His volume replacement was most likely inadequate due to his underlying symptoms. He states that his stools were just starting to improve yesterday when he had this event. This certainly makes his syncope more likely vasovagal due to low volume coupled with the pneumonia, acute kidney injury and non-ST elevated myocardial infarction. He is being monitored on telemetry in the ICU. No further episodes of lightheadedness, dizziness or syncope. (2) NSTEMI (non-ST elevated myocardial infarction) Is this a current diagnosis for this admission?: Yes Plan: 03/13/2019-the patient has in fact had a non-ST elevated myocardial infarction. The troponin peaked at 1.35 and is now down to 0.840. He does have a history of FIELD. With his acute kidney injury he is not a candidate for catheterization at this time however we will likely transfer to [facility] for cardiac catheterization prior to his discharge. Dr. Sage is the db2 systems programmer currently on board. His outpatient db2 systems programmer is Dr. Franco. He also exhibits acute changes on his EKG. Currently he is pain-free. He is on a heparin infusion. We are also continuing Plavix. He does have sublingual nitroglycerin available if needed. (3) Left upper lobe pneumonia Qualifiers: Pneumonia type: due to unspecified organism Qualified Code(s): J18.1 - Lobar pneumonia, unspecified organism Is this a current diagnosis for this admission?: Yes Plan: 03/13/2019-the patient has experienced nausea, vomiting and diarrhea over the last 4 to 5 days. The left upper lobe is not characteristically associated with aspiration. This is more likely a community-acquired pneumonia. We will continue the Rocephin and azithromycin at this time. If needed, dosing will be adjusted for renal function. Sputum specimen was not available for culture. The patient's white blood cell count did go up today. There are several reasons for this including the pneumonia as well as the myocardial infarction. We will continue to monitor his white blood cell count. He has remained afebrile. (4) Acute respiratory failure with hypoxia Is this a current diagnosis for this admission?: Yes Plan: 03/13/2019-the patient exhibited increased work of breathing with hypoxia. He required BiPAP and supplemental oxygen to keep saturation greater than 90%. We are currently attempting to wean the patient from BiPAP to high flow nasal cannula as noted above. This will likely be a slow process. The patient does not report a history of chronic obstructive pulmonary disease and he is on no scheduled inhalers at home. Xopenex nebulizer is available as needed. (5) SIRS (systemic inflammatory response syndrome) Is this a current diagnosis for this admission?: Yes Plan: 03/13/2019-the patient just meets criteria for sepsis. He exhibited hypoxemia requiring BiPAP and supplemental oxygen. He does exhibit acute kidney injury as well. The sepsis is likely due to the combination of pneumonia, non-ST elevation myocardial infarction and recent gastrointestinal illness. The patient is receiving fluid hydration. A repeat metabolic panel is pending. He has a history of cardiac bypass and I do not want to fluid overload the patient. As we start to see improvement in the renal function I will begin to decrease the IV fluids. As his appetite improves and he is able to take more fluid by mouth we can also decrease the IV fluid. He is receiving antibiotics for the pneumonia as well. (6) DULCE (acute kidney injury) Is this a current diagnosis for this admission?: Yes Plan: 03/13/2019-as noted above the patient had a significant gastrointestinal illness for the last 5 or 6 days. The acute kidney injury is likely a combination of decreased intake and increased output. He is receiving aggressive hydration. We have serial chemistry panels ordered. As the kidney function improves I will be able to decrease the volume. His urine output appears to be picking up. Continue to monitor chemistries as noted above. Consider nephrology consult if the kidneys did not respond to the current treatment plan. (7) Hyperglycemia Is this a current diagnosis for this admission?: Yes Plan: 03/13/2019-the patient does not have a history of diabetes. His hemoglobin A1c in fact was 6.1%. I believe he is exhibiting transient hyperglycemia likely due to physiologic stress. I will also need to review his medications to see if any of the medicines are mixed in the dextrose solution. He does have sliding scale on board. This should be enough for control of his sugar. (8) Leukocytosis Qualifiers: Leukocytosis type: unspecified Qualified Code(s): D72.829 - Elevated white blood cell count, unspecified Is this a current diagnosis for this admission?: Yes Plan: 03/13/2019-the patient's white blood cell count in fact has gone up. This is likely response to the myocardial infarction but also could be ongoing from the pneumonia since he has only received several doses of antibiotic therapy. We will continue to monitor his white blood cell count. Clinically he looks improved and I expect the white blood cell count to follow. (9) Morbid obesity Is this a current diagnosis for this admission?: Yes Plan: 03/13/2019-the patient's BMI is 57. This is certainly a factor in his chronic illness. He will likely participate in cardiac rehab after a cardiac cat heterization evaluation. At this point he would benefit from a weight loss program as opposed to self dieting. - Time Time Spent with patient: 25-34 minutes Medications reviewed and adjusted accordingly: Yes
[2019-03-13 12:29] LABS: TROPONIN I 0.84 ng/mL
[2019-03-13] MEDS ORDERED: HEPARIN SOD (PORCINE) 1,000 UNIT/ML 10 ML VIAL IV ONE (12:30)
[2019-03-13 12:37] LABS: APPEARANCE,URINE CLEAR; BILIRUBIN,URINE NEGATIVE (NEGATIVE); COLOR,URINE YELLOW; GLUCOSE, URINE NEGATIVE (NEGATIVE); KETONES,URINE NEGATIVE (NEGATIVE); LEUKOCYTE ESTERASE,URINE NEGATIVE (NEGATIVE); NITRITE,URINE NEGATIVE (NEGATIVE); PROTEIN,URINE NEGATIVE (NEGATIVE); URINE SPECIFIC GRAVITY 1.019; UROBILINOGEN,URINE NEGATIVE mg/dL (<2.0)
[2019-03-13] MEDS: HEPARIN SODIUM,PORCINE/D5W 25,000 UNIT/250 ML RTUINJ IV PRN (12:42)
[2019-03-13 12:49] LABS: INTERNATIONAL RATION (INR) 1.15; PROTHROMBIN TIME 14.7 SEC (11.4-15.4)
[2019-03-13 12:50] LABS: PARTIAL THROMBOPLASTIN TIME 33.3 SEC (23.5-35.8)
[2019-03-13 12:56] LABS: MEAN CORPUSCULAR HEMOGLOBIN 28.3 pg (27.0-33.4); MEAN CORPUSCULAR HGB CONC 33.4 g/dL (32.0-36.0); MEAN CORPUSCULAR VOLUME 85 fl (80-97); PLATELET COUNT 218 10^3/uL (150-450); RED BLOOD COUNT 4.95 10^6/uL (4.35-5.55); RED CELL DISTRIBUTION WIDTH 16.3 % (11.5-14.0); WHITE BLOOD COUNT 22.3 10^3/uL (4.0-10.5)
[2019-03-13 13:23] LABS: ABSOLUTE LYMPHOCYTES# (MANUAL) 2.5 10^3/uL (0.5-4.7); ABSOLUTE MONOCYTES # (MANUAL) 1.8 10^3/uL (0.1-1.4); BAND NEUTROPHILS % (MANUAL) 1 % (3-5); BASOPHILS % (MANUAL) 1 % (0-2); EOSINOPHILS % (MANUAL) 0 % (0-6); LYMPHOCYTES % (MANUAL) 11 % (13-45); MONOCYTES % (MANUAL) 8 % (3-13); SEGMENTED NEUTROPHILS % (MAN) 79 % (42-78); TOTAL CELLS COUNTED 100
[2019-03-13 13:24] LABS: ANISOCYTOSIS 1+; PLATELET COMMENT ADEQUATE; POLYCHROMASIA SLIGHT
[2019-03-13] MEDS ORDERED: LACTOBACILLUS ACIDOPHILUS 250 MG TAB ONE (17:12)
[2019-03-13] MEDS: LACTOBACILLUS ACIDOPHILUS 250 MG TAB PO SCH (17:13)
--- NOTE | 2019-03-13 17:37 | EKG REPORT ---
SEVERITY:- ABNORMAL ECG - SINUS RHYTHM ABNORMAL T, CONSIDER ISCHEMIA, ANT-LAT LEADS BORDERLINE PROLONGED QT INTERVAL : Confirmed by: Sheila Sage MD 13-Mar-2019 17:36:20
--- NOTE | 2019-03-13 17:37 | EKG REPORT ---
SEVERITY:- ABNORMAL ECG - SINUS RHYTHM NONSPECIFIC T ABNORMALITIES, DIFFUSE LEADS BORDERLINE PROLONGED QT INTERVAL : Confirmed by: Sheila Sage MD 13-Mar-2019 17:36:12
[2019-03-13 18:48] LABS: ANION GAP 10 (5-19); BLOOD UREA NITROGEN 42 mg/dL (7-20); CALCIUM 9.2 mg/dL (8.4-10.2); CARBON DIOXIDE 26 mmol/L (22-30); CHLORIDE 99 mmol/L (98-107); GLUCOSE 115 mg/dL (75-110); POTASSIUM 4.6 mmol/L (3.6-5.0)
[2019-03-13] MEDS: HEPARIN SOD (PORCINE) 1,000 UNIT/ML 10 ML VIAL IV PRN (21:27)
[2019-03-13] MEDS: ATORVASTATIN CALCIUM 80 MG TABLET PO SCH (21:27)
--- NOTE | 2019-03-13 21:36 | PDOC CONSULTATION ---
Consultation-Blank Consultation: CARDIOLOGY CONSULTATION by Dr. Sheila Sage on 03/13/2019. Patient seen at 10 AM on 03/13/2019. REASON FOR CONSULTATION: Patient with elevated troponin I and new T wave changes, consistent with non-ST elevation MD. CONSULT REQUESTING PHYSICIAN: Dr. Vargas [facility] hospitalist physician. HISTORY PRESENT ILLNESS: Patient is a morbidly obese 53-year-old male with known history of coronary artery disease, with a history of off-pump FIELD to the LAD in 2017, hypertension, and hyperlipidemia states since the past 5 to 6 days prior to admission had food poisoning and had incessant watery diarrhea and nausea and vomiting. The patient states although he tried to drink as much Gatorade as he could he could not keep much in. The patient subsequently went to the to the toilet and subsequently does not remember what happened. His family found him to be unresponsive and also when woken up he was very somnolent and very confused suggesting that this is been prolonged state of altered mental status rather than syncope. He was also found to have severe hypoxemia in spite of BiPAP. He was brought to the emergency room where he was found to be in acute renal failure, he was hypoxic but that subsequently with treatment did improve to acceptable oxygen levels. He denies any chest pain or discomfort. He has no prior history of chronic kidney disease, but the patient came in with a GFR of 29 clearly secondary to acute renal failure due to dehydration. The patient denies any anginal symptoms. There is chronic orthopnea present but no PND. The patient did shortness of breath without wheezing, and also did have cough productive of sputum at present which he says is very scanty and difficult to bring up. He has no palpitations. He has trace to mild chronic leg edema which is not increased. Of note the patient is EKG changes on the anterolateral territory, most likely this area supplied by the LAD which is been bypassed with a left internal mammary artery. The patient's troponin is trending down. And since his symptom onset about 5 days ago and during this admission is no anginal chest pains. But in view of the patient's significant ischemic anterolateral T wave inversion, and elevated troponin I would have to treat this as a non-ST elevation MD. Past Medical History Cardiac Medical History: Reports: Coronary Artery Disease, Hyperlipidema, Hypertension. The patient 2017 had chest pain, in view of the patient's obesity, and the patient's hypertension hyperlipidemia and strong family history of premature coronary artery disease he was referred to for cardiac catheterization at [facility] [place]. He was found to have a " maker" LAD lesion and had off-pump FIELD to the LAD. There is been no prior history of MD since then he is done well but has had intermittent chest pains only with more than moderate to severe exertion he has no history of congestive heart failure. He has no palpitations or prior history of syncope. Denies: Atrial Fibrillation, Congestive Heart Failure, Myocardial Infarction Pulmonary Medical History: Denies: Asthma, Chronic Obstructive Pulmonary Disease (COPD), Respiratory Failure. He states in the past he has had a sleep study and was told to follow- up but he did not do so. On questioning his relatives he does have symptoms suggestive of obstructive sleep apnea. EENT Medical History: Denies: Cataracts, Ears - Hearing aids Neurological Medical History: Denies: Hemorrhagic CVA, Ischemic CVA, Multiple Sclerosis, Seizures Endocrine Medical History: Denies: Diabetes Mellitus Type 1, Diabetes Mellitus Type 2, Hyperthyroidism, Hypothyroidism Renal/ Medical History: Denies: Chronic Kidney Disease, Nephrolithiasis Malignancy Medical History: Reports: None GI Medical History: Denies: Cirrhosis, Crohn's Disease, Hepatitis, Ulcerative Colitis Musculoskeltal Medical History: Denies: Arthritis, Gout Skin Medical History: Denies: Eczema, Psoriasis Psychiatric Medical History: Denies: Alcohol Dependency, Substance Abuse, Tobacco Dependency Traumatic Medical History: Reports: None Hematology: Denies: Anemia, Bleeding Tendencies Infectious Medical History: Reports: None Past Surgical History Past Surgical History: Reports: Cardiac Catheterization, Coronary Artery Bypass Graft Social History Information Source: Patient Lives with: Friend Smoking Status: Never Smoker Frequency of Alcohol Use: None Hx Recreational Drug Use: No Drugs: None Hx Prescription Drug Abuse: No - Advance Directive Resuscitation Status: Full Code Surrogate healthcare decision maker:: Zachary Cummins Family History Family History: CAD, CVA, DM, Hyperlipidemia, Hypertension, Malignancy Parental Family History Reviewed: Yes Children Family History Reviewed: No Sibling(s) Family History Reviewed.: Yes Medication/Allergy Home Medications: Aspirin [Ecotrin 81 mg EC Tablet] 81 mg PO DAILY 03/12/19 Atorvastatin Calcium [Lipitor 80 mg Tablet] 80 mg PO QHS 03/12/19 Chlorthalidone [Hygroton 25 mg Tablet] 25 mg PO DAILY 03/12/19 Ezetimibe 10 mg PO QHS 03/12/19 Lisinopril 20 mg PO DAILY 03/12/19 Metoprolol Succinate [Toprol Xl 50 mg Tab.sr] 50 mg PO DAILY 03/12/19 Nitroglycerin [Nitrostat 0.4 mg (1/150 Gr) Tabs 25/Bottle] 1 tab SL Q5MP PRN 03/12/19 Sildenafil Citrate [Viagra] 100 mg PO ASDIR PRN 03/12/19 Allergies/Adverse Reactions: No Known Allergies Allergy (Unverified 10/11/15 14:05) Review of Systems Constitutional: ABSENT: chills, fever(s) Eyes: ABSENT: visual disturbances, other - Ocular pain Ears: ABSENT: hearing changes, other - Ear pain Nose, Mouth, and Throat: ABSENT: mouth pain, sore throat Cardiovascular: ABSENT: chest pain, palpitations Respiratory: He has had cough, dyspnea Gastrointestinal: ABSENT: abdominal pain, constipation. He has had foot poisoning and diarrhea and severe nausea and vomiting. He has no hematochezia, melena. Genitourinary: ABSENT: dysuria, hematuria Musculoskeletal: ABSENT: back pain, joint swelling, muscle weakness Integumentary: ABSENT: pruritus, rash Neurological: ABSENT: confusion, convulsions, focal weakness, memory loss, syncope Psychiatric: ABSENT: anxiety, depression Endocrine: ABSENT: cold intolerance, heat intolerance Hematologic/Lymphatic: ABSENT: easy bleeding, easy bruising METABOLIC: He has a history of morbid obesity. He also has hyperlipidemia PHYSICAL EXAMINATION: The patient morbidly obese. At present on BiPAP with no acute distress. Selected Entries 03/13/19 03/13/19 10:08 11:04 Core 98.4 F Temperature Heart Rate ( 79 Monitors) Respiratory 16 Rate Blood Pressure 105/73 Blood Pressure 83 Mean O2 Sat by Pulse 95 Oximetry Fraction of 80 Inspired Oxygen Patient on BiPAP (FIO2) HEAD: Is atraumatic normocephalic. EYES: Pupils equal round regular reactive to light and accommodation. Extraocular movements are normal. There is no co njunctival pallor. There is no scleral icterus. EARS: Panic membranes are intact. External auditory canals are clear. NOSE: There is no deviated nasal septum. There is no inflammation of the nasal mucous membrane. MOUTH: Mucous memories of mouth and tongue are very dry. There is no bleeding from the gums. THROAT: There is no redness of the oropharynx. There is no exudates. SKIN: Skin turgor is reduced. There is no petechia or ecchymosis. There is no skin rashes or skin lesions. NECK: Is supple. There is no JVD. Carotids are equal there is no bruit. There is no goiter. There is no adenopathy. There is no accessory muscles of respiration use. Trachea central LUNGS: There are a few dry crackles in the left upper lobe consistent with pneumonia. Rest of the lungs are clear. There is no rales of CHF. There is no rhonchi or wheezing. HEART: S1-S2 is heard. There is no S3 gallop. There is no S4 gallop. There is systolic murmur left sternal border and the apex there is no rub. ABDOMEN: Is obese: Nontender. There is no hepatospleno megaly bowel sounds are well heard. There is no tender areas masses. EXTREMITIES: Femorals are deep. Femorals are diminished. Leg pulses are diminished. There is trace pedal edema bilaterally. There is no cyanosis or clubbing. There is no DVT or cellulitis. DIRECTOR PUBLIC SERVICE: The patient is conscious awake alert oriented x3 with no focal deficits. PSYCHIATRIC: The patient judgment insight are intact his affect is normal. Patient's initial EKG on admission shows sinus rhythm. Probable old inferior MD. No acute ST-T changes. The patient subsequent to EKG shows new anterolateral T wave inversion consistent consistent with ischemia. With the troponin being elevated this is considered consistent with a non-ST elevation MD. Current Medications Generic Name Dose Route Start Last Admin Trade Name Freq PRN Reason Stop Dose Admin Acetaminophen 650 mg 03/12/19 21:01 Tylenol 325 Mg Tablet PO 04/11/19 21:00 Q4HP PRN For headache, pain or fever Al Hydrox/Mg Hydrox/Simethicone 30 ml 03/12/19 20:33 Maalox Plus Susp 30 Udcup PO 04/11/19 20:32 Q6HP PRN HEARTBURN Aspirin 81 mg 03/13/19 10:00 03/13/19 09:21 Ecotrin 81 Mg Ec Tablet PO 04/12/19 09:59 81 mg DAILY ASHLIE Administration Atorvastatin Calcium 80 mg 03/13/19 22:00 03/13/19 21:27 Lipitor 80 Mg Tablet PO 04/12/19 21:59 80 mg QHS ASHLIE Administration Clopidogrel Bisulfate 75 mg 03/13/19 10:00 03/13/19 09:21 Plavix 75 Mg Tablet PO 04/12/19 09:59 75 mg DAILY ASHLIE Administration Dextrose 25 gm 03/12/19 23:36 Dextrose Inj 50% Syringe (25 Gm/50 Ml) IV 04/11/19 23:35 PRN PRN PER PROTOCOL Protocol Dextrose 12.5 gm 03/12/19 23:36 Dextrose Inj 50% Syringe (25 Gm/50 Ml) IV 04/11/19 23:35 PRN PRN FOR BG 50-69 IN ALERT PATIENT Protocol Docusate Sodium 100 mg 03/13/19 10:00 03/13/19 17:13 Colace 100 Mg Capsule PO 04/12/19 09:59 100 mg BID ASHLIE Administration Glucagon 1 mg 03/12/19 23:36 Glucagen Inj 1 Mg Vial IM 04/11/19 23:35 PRN PRN Evaluate for BG < 70 Protocol Glucose 15 gm 03/12/19 23:36 Glutose 40% Gel 15 Gm Tube PO 04/11/19 23:35 PRN PRN FOR BG 50-69 IN ALERT PATIENT Protocol Glucose 30 gm 03/12/19 23:36 Glutose 40% Gel 15 Gm Tube PO 04/11/19 23:35 PRN PRN FOR BG < 50 IN ALERT PATIENT Protocol Guaifenesin 600 mg 03/12/19 22:00 03/13/19 21:27 Mucinex Sr 600 Mg Tablet.Sa PO 04/11/19 21:59 600 mg Q12 ASHLIE Administration Heparin Sodium (Porcine) 0 - 12,000 unit 03/13/19 14:47 03/13/19 21:27 Heparin Inj 1,000 Unit/Ml 10 Ml Vial IV 04/12/19 14:46 4,000 units .BOLUS PER PROTOCOL PRN Administration RESPOND TO aPTT VALUE Protocol Azithromycin 500 mg/ Dextrose 250 mls @ 250 mls/hr 03/13/19 08:00 03/13/19 09:21 IV 03/20/19 07:59 Infused QAM ASHLIE Infusion Ceftriaxone Sodium/Dextrose 1 gm in 50 mls @ 100 mls/hr 03/13/19 10:00 03/13/19 10:53 Rocephin Rtu 1 Gm/D5w 50 Ml Premix IV 03/20/19 09:59 Infused DAILY ASHLIE Infusion Lactated Ringer's 1,000 mls @ 250 mls/hr 03/12/19 23:33 03/13/19 23:12 Lactated Ringers 1000 Ml Iv Soln IV 04/11/19 23:32 250 mls/hr CONTINUOUS PRN Administration THIS MED IS NOT "PRN" Heparin Sodium/Dextrose 25,000 unit in 250 mls @ 0 mls/hr 03/13/19 11:45 03/13/19 21:35 Heparin Rtu 25,000 Unit/250 Ml D5w Premix IV 04/12/19 11:44 9.24 unit/kg/hr CONTINUOUS PRN 17.61 mls/hr THIS MED IS NOT "PRN" Titration Protocol Titrate Insulin Human Regular 0 - 15 unit 03/13/19 08:00 03/13/19 21:35 Humulin R (Pyxis) Insulin 100 Unit/Ml 3ml SUBCUT 04/12/19 07:59 Not Given ACHS ASHLIE Protocol Lactobacillus Acidophilus 500 mg 03/13/19 18:00 03/13/19 17:13 Bacid 250 Mg Tablet PO 04/12/19 17:59 500 mg BID ASHLIE Administration Levalbuterol HCl 0.63 mg 03/12/19 20:33 Xopenex Neb 0.63 Mg/3 Ml Ampul NEB 04/11/19 20:32 RTQ2HP PRN SHORTNESS OF BREATH Losartan Potassium 50 mg 03/13/19 10:00 03/13/19 09:21 Cozaar 50 Mg Tablet PO 04/12/19 09:59 50 mg DAILY ASHLIE Administration Magnesium Hydroxide 30 ml 03/12/19 20:33 Milk Of Magnesia 30 Ml Udcup PO 04/11/19 20:32 DAILYP PRN FOR CONSTIPATION Metoprolol Succinate 50 mg 03/13/19 10:00 03/13/19 09:21 Toprol Xl 50 Mg Tab.Sr PO 04/12/19 09:59 50 mg DAILY ASHLIE Administration Nalbuphine HCl 10 mg 03/12/19 21:01 Nubain Inj 10 Mg/1 Ml Ampule IV 03/19/19 21:00 Q3HP PRN FOR PAIN Nitroglycerin 1 tab 03/12/19 22:16 Nitrostat 0.4 Mg (1/150 Gr) Tabs 25/Bottle SL 04/11/19 22:15 Q5MP PRN FOR CHEST PAIN Ondansetron HCl 4 mg 03/12/19 20:33 Zofran Inj/Pf 4 Mg/2 Ml Sdv IV 04/11/19 20:32 Q4HP PRN FOR NAUSEA/VOMITING Pantoprazole Sodium 40 mg 03/13/19 06:00 03/13/19 17:[address] Tablet PO 04/12/19 05:59 40 mg BID@0600,1700 ASHLIE Administration Sodium Chloride 2.5 ml 03/12/19 22:00 03/13/19 21:27 Saline Flush 2.5 Ml Monoject Prefil Syrin IV 04/11/19 21:59 Not Given Q8 ASHLIE Temazepam 30 mg 03/12/19 20:33 Restoril 15 Mg Capsule PO 03/19/19 20:32 HSP PRN SLEEP OR INSOMNIA Discontinued Medications Generic Name Dose Route Start Last Admin Trade Name Cristóbalq PRN Reason Stop Dose Admin Aspirin 162 mg 03/12/19 19:29 03/12/19 20:01 Aspirin 81 Mg Chewable Tablet PO 03/12/19 19:30 162 mg NOW ONE Administration Aspirin 325 mg 03/13/19 10:00 Aspirin 325 Mg Tablet PO 04/12/19 09:59 DAILY ASHLIE Enoxaparin Sodium 190 mg 03/12/19 22:00 03/13/19 09:20 Lovenox Inj 100 Mg/1 Ml Disp.Syrin SUBCUT 04/11/19 21:59 190 mg Q12 ASHLIE Administration Famotidine 20 mg 03/12/19 22:00 03/12/19 22:11 Pepcid Inj/Pf 20 Mg/2 Ml Sdv IV 04/11/19 21:59 20 mg Q12 ASHLIE Administration Heparin Sodium (Porcine) 4,000 unit 03/13/19 12:30 03/13/19 12:42 Heparin Inj 1,000 Unit/Ml 10 Ml Vial IV 03/13/19 12:31 4,000 unit NOW ONE Administration Sodium Chloride 500 mls @ 0 mls/hr 03/12/19 19:30 03/12/19 20:41 Nacl 0.9% 500 Ml Iv Soln IV 03/12/19 19:31 Infused NOW ONE Infusion Wide Open Lactated Ringer's 1,000 mls @ 0 mls/hr 03/12/19 21:01 03/12/19 22:00 Lactated Ringers 1000 Ml Iv Soln IV 03/12/19 21:02 Infused BOLUS ONE Infusion Wide Open Dextrose/Lactated Ringer's 1,000 mls @ 167 mls/hr 03/12/19 20:33 03/13/19 02:53 D5lr 1000 Ml Iv Soln IV 04/11/19 20:32 Infused CONTINUOUS PRN Infusion THIS MED IS NOT "PRN" Lactobacillus Acidophilus Confirm 03/13/19 17:12 03/13/19 17:42 Bacid 250 Mg Tablet Administered 03/13/19 17:13 Not Given Dose 250 mg .ROUTE .STK-MED ONE Piperacillin Sod/Tazobactam Sod 4.5 gm 03/12/19 19:12 03/12/19 19:44 Zosyn Inj 4.5 Gm Vial IV 03/12/19 19:13 4.5 gm IVBAG (ED) ONE Administration Vancomycin HCl 1,500 mg 03/12/19 19:12 03/12/19 20:01 Vancocin Inj 1000 Mg Vial IV 03/12/19 19:13 1,500 mg IVBAG (ED) ONE Administration Labs- Entire Visit 03/12/19 03/12/19 03/12/19 18:26 18:26 18:26 WBC 19.7 H RBC 5.06 Hgb 14.2 Hct 43.4 MCV 86 MCH 28.1 MCHC 32.7 RDW 16.2 H Plt Count 272 Lymph % (Auto) [place] % (Auto) Eos % (Auto) Baso % (Auto) Absolute Neuts (auto) Absolute Lymphs (auto) Absolute Monos (auto) Absolute Eos (auto) Absolute Basos (auto) Total Counted Seg Neutrophils % 76.0 Seg Neuts % (Manual) Band Neutrophils % Lymphocytes % 15.5 Lymphocytes % (Manual) Monocytes % 7.5 Monocytes % (Manual) Eosinophils % 0.2 Eosinophils % (Manual) Basophils % 0.8 Basophils % (Manual) Absolute Neutrophils 15.0 H Abs Neuts (Manual) Absolute Lymphocytes 3.1 Abs Lymphs (Manual) Absolute Monocytes 1.5 H Abs Monocytes (Manual) Absolute Eosinophils 0.0 Absolute Eos (Manual) Absolute Basophils 0.2 Abs Basophils (Manual) Platelet Comment Polychromasia Anisocytosis PT 15.0 INR 1.17 APTT Carbonic Acid HCO3/H2CO3 Ratio ABG pH ABG pCO2 ABG pO2 ABG HCO3 ABG Total CO2 ABG O2 Saturation ABG Base Excess FiO2 Sodium 134.5 L Potassium 4.2 Chloride 98 Carbon Dioxide 23 Anion Gap 14 BUN 31 H Creatinine 2.35 H Est GFR ( Amer) 35 L Est GFR (Non-Af Amer) 29 L Est GFR (MDRD) Non-Af Glucose 202 H POC Glucose Hemoglobin A1c % Lactic Acid Calcium 8.5 Magnesium Total Bilirubin 0.9 Direct Bilirubin 0.4 Neonat Total Bilirubin Not Reportable Neonat Direct Bilirubin Not Reportable Neonat Indirect Bili Not Reportable AST 31 ALT 28 Alkaline Phosphatase 73 Creatine Kinase CK-MB (CK-2) Troponin I NT-Pro-B Natriuret Pep Total Protein 6.1 L Albumin 3.4 L Triglycerides Cholesterol LDL Cholesterol Direct VLDL Cholesterol HDL Cholesterol Urine Color Urine Appearance Urine pH Ur Specific [place] Urine Protein Urine Glucose (UA) Urine Ketones Urine Blood Urine Nitrite Urine Bilirubin Urine Urobilinogen Ur Leukocyte Esterase Urine WBC (Auto) Urine RBC (Auto) U Hyaline Cast (Auto) Urine Bacteria (Auto) Squamous Epi Cells Auto Urine Mucus (Auto) Urine Ascorbic Acid 03/12/19 03/12/19 03/12/19 18:26 18:26 18:48 WBC RBC Hgb Hct MCV MCH MCHC RDW Plt Count Lymph % (Auto) [place] % (Auto) Eos % (Auto) Baso % (Auto) Absolute Neuts (auto) Absolute Lymphs (auto) Absolute Monos (auto) Absolute Eos (auto) Absolute Basos (auto) Total Counted Seg Neutrophils % Seg Neuts % (Manual) Band Neutrophils % Lymphocytes % Lymphocytes % (Manual) Monocytes % Monocytes % (Manual) Eosinophils % Eosinophils % (Manual) Basophils % Basophils % (Manual) Absolute Neutrophils Abs Neuts (Manual) Absolute Lymphocytes Abs Lymphs (Manual) Absolute Monocytes Abs Monocytes (Manual) Absolute Eosinophils Absolute Eos (Manual) Absolute Basophils Abs Basophils (Manual) Platelet Comment Polychromasia Anisocytosis PT INR APTT Carbonic Acid HCO3/H2CO3 Ratio ABG pH ABG pCO2 ABG pO2 ABG HCO3 ABG Total CO2 ABG O2 Saturation ABG Base Excess FiO2 Sodium Potassium Chloride Carbon Dioxide Anion Gap BUN Creatinine Est GFR ( Amer) Est GFR (Non-Af Amer) Est GFR (MDRD) Non-Af Glucose POC Glucose Hemoglobin A1c % Lactic Acid 2.8 H Calcium Magnesium Total Bilirubin Direct Bilirubin Neonat Total Bilirubin Neonat Direct Bilirubin Neonat Indirect Bili AST ALT Alkaline Phosphatase Creatine Kinase CK-MB (CK-2) Troponin I 1.170 NT-Pro-B Natriuret Pep Total Protein Albumin Triglycerides Cholesterol LDL Cholesterol Direct VLDL Cholesterol HDL Cholesterol Urine Color ALEX Urine Appearance CLOUDY Urine pH 5.0 Ur Specific [place] 1.021 Urine Protein 100 H Urine Glucose (UA) NEGATIVE Urine Ketones NEGATIVE Urine Blood MODERATE H Urine Nitrite NEGATIVE Urine Bilirubin NEGATIVE Urine Urobilinogen 2.0 H Ur Leukocyte Esterase NEGATIVE Urine WBC (Auto) 8 Urine RBC (Auto) 6 U Hyaline Cast (Auto) 19 Urine Bacteria (Auto) TRACE Squamous Epi Cells Auto 1 Urine Mucus (Auto) OCC Urine Ascorbic Acid NEGATIVE 03/12/19 03/12/19 03/13/19 19:00 21:25 01:48 WBC RBC Hgb Hct MCV MCH MCHC RDW Plt Count Lymph % (Auto) [place] % (Auto) Eos % (Auto) Baso % (Auto) Absolute Neuts (auto) Absolute Lymphs (auto) Absolute Monos (auto) Absolute Eos (auto) Absolute Basos (auto) Total Counted Seg Neutrophils % Seg Neuts % (Manual) Band Neutrophils % Lymphocytes % Lymphocytes % (Manual) Monocytes % Monocytes % (Manual) Eosinophils % Eosinophils % (Manual) Basophils % Basophils % (Manual) Absolute Neutrophils Abs Neuts (Manual) Absolute Lymphocytes Abs Lymphs (Manual) Absolute Monocytes Abs Monocytes (Manual) Absolute Eosinophils Absolute Eos (Manual) Absolute Basophils Abs Basophils (Manual) Platelet Comment Polychromasia Anisocytosis PT INR APTT Carbonic Acid 1.34 HCO3/H2CO3 Ratio 18:1 ABG pH 7.35 ABG pCO2 44.5 ABG pO2 86.1 ABG HCO3 24.2 H ABG Total CO2 25.6 ABG O2 Saturation 96.1 ABG Base Excess -1.5 FiO2 100% Sodium Potassium Chloride Carbon Dioxide Anion Gap BUN Creatinine Est GFR ( Amer) Est GFR (Non-Af Amer) Est GFR (MDRD) Non-Af Glucose POC Glucose Hemoglobin A1c % Lactic Acid 2.4 H Calcium Magnesium Total Bilirubin Direct Bilirubin Neonat Total Bilirubin Neonat Direct Bilirubin Neonat Indirect Bili AST ALT Alkaline Phosphatase Creatine Kinase 407 H CK-MB (CK-2) Troponin I NT-Pro-B Natriuret Pep Total Protein Albumin Triglycerides Cholesterol LDL Cholesterol Direct VLDL Cholesterol HDL Cholesterol Urine Color Urine Appearance Urine pH Ur Specific [place] Urine Protein Urine Glucose (UA) Urine Ketones Urine Blood Urine Nitrite Urine Bilirubin Urine Urobilinogen Ur Leukocyte Esterase Urine WBC (Auto) Urine RBC (Auto) U Hyaline Cast (Auto) Urine Bacteria (Auto) Squamous Epi Cells Auto Urine Mucus (Auto) Urine Ascorbic Acid 03/13/19 03/13/19 03/13/19 01:48 01:48 04:23 WBC RBC Hgb Hct MCV MCH MCHC RDW Plt Count Lymph % (Auto) [place] % (Auto) Eos % (Auto) Baso % (Auto) Absolute Neuts (auto) Absolute Lymphs (auto) Absolute Monos (auto) Absolute Eos (auto) Absolute Basos (auto) Total Counted Seg Neutrophils % Seg Neuts % (Manual) Band Neutrophils % Lymphocytes % Lymphocytes % (Manual) Monocytes % Monocytes % (Manual) Eosinophils % Eosinophils % (Manual) Basophils % Basophils % (Manual) Absolute Neutrophils Abs Neuts (Manual) Absolute Lymphocytes Abs Lymphs (Manual) Absolute Monocytes Abs Monocytes (Manual) Absolute Eosinophils Absolute Eos (Manual) Absolute Basophils Abs Basophils (Manual) Platelet Comment Polychromasia Anisocytosis PT INR APTT Carbonic Acid 1.48 H HCO3/H2CO3 Ratio 16:1 ABG pH 7.31 L ABG pCO2 49.2 H ABG pO2 75.7 L ABG HCO3 24.2 H ABG Total CO2 25.7 ABG O2 Saturation 93.9 L ABG Base Excess -2.6 FiO2 80% Sodium Potassium Chloride Carbon Dioxide Anion Gap BUN Creatinine Est GFR ( Amer) Est GFR (Non-Af Amer) Est GFR (MDRD) Non-Af Glucose POC Glucose Hemoglobin A1c % Lactic Acid 2.7 H Calcium Magnesium Total Bilirubin Direct Bilirubin Neonat Total Bilirubin Neonat Direct Bilirubin Neonat Indirect Bili AST ALT Alkaline Phosphatase Creatine Kinase CK-MB (CK-2) 4.76 H Troponin I 1.350 NT-Pro-B Natriuret Pep Total Protein Albumin Triglycerides Cholesterol LDL Cholesterol Direct VLDL Cholesterol HDL Cholesterol Urine Color Urine Appearance Urine pH Ur Specific [place] Urine Protein Urine Glucose (UA) Urine Ketones Urine Blood Urine Nitrite Urine Bilirubin Urine Urobilinogen Ur Leukocyte Esterase Urine WBC (Auto) Urine RBC (Auto) U Hyaline Cast (Auto) Urine Bacteria (Auto) Squamous Epi Cells Auto Urine Mucus (Auto) Urine Ascorbic Acid 03/13/19 03/13/19 03/13/19 05:09 05:09 05:09 WBC 18.9 H RBC 4.85 Hgb 13.7 Hct 41.5 MCV 86 MCH 28.3 MCHC 33.1 RDW 16.1 H Plt Count 218 Lymph % (Auto) [place] % (Auto) Eos % (Auto) Baso % (Auto) Absolute Neuts (auto) Absolute Lymphs (auto) Absolute Monos (auto) Absolute Eos (auto) Absolute Basos (auto) Total Counted Seg Neutrophils % Seg Neuts % (Manual) Band Neutrophils % Lymphocytes % Lymphocytes % (Manual) Monocytes % Monocytes % (Manual) Eosinophils % Eosinophils % (Manual) Basophils % Basophils % (Manual) Absolute Neutrophils Abs Neuts (Manual) Absolute Lymphocytes Abs Lymphs (Manual) Absolute Monocytes Abs Monocytes (Manual) Absolute Eosinophils Absolute Eos (Manual) Absolute Basophils Abs Basophils (Manual) Platelet Comment Polychromasia Anisocytosis PT 15.0 INR 1.17 APTT Carbonic Acid HCO3/H2CO3 Ratio ABG pH ABG pCO2 ABG pO2 ABG HCO3 ABG Total CO2 ABG O2 Saturation ABG Base Excess FiO2 Sodium Potassium Chloride Carbon Dioxide Anion Gap BUN Creatinine Est GFR ( Amer) Est GFR (Non-Af Amer) Est GFR (MDRD) Non-Af Glucose POC Glucose Hemoglobin A1c % Lactic Acid 2.0 Calcium Magnesium Total Bilirubin Direct Bilirubin Neonat Total Bilirubin Neonat Direct Bilirubin Neonat Indirect Bili AST ALT Alkaline Phosphatase Creatine Kinase CK-MB (CK-2) Troponin I NT-Pro-B Natriuret Pep Total Protein Albumin Triglycerides Cholesterol LDL Cholesterol Direct VLDL Cholesterol HDL Cholesterol Urine Color Urine Appearance Urine pH Ur Specific [place] Urine Protein Urine Glucose (UA) Urine Ketones Urine Blood Urine Nitrite Urine Bilirubin Urine Urobilinogen Ur Leukocyte Esterase Urine WBC (Auto) Urine RBC (Auto) U Hyaline Cast (Auto) Urine Bacteria (Auto) Squamous Epi Cells Auto Urine Mucus (Auto) Urine Ascorbic Acid 03/13/19 03/13/19 03/13/19 05:09 05:09 05:09 WBC RBC Hgb Hct MCV MCH MCHC RDW Plt Count Lymph % (Auto) [place] % (Auto) Eos % (Auto) Baso % (Auto) Absolute Neuts (auto) Absolute Lymphs (auto) Absolute Monos (auto) Absolute Eos (auto) Absolute Basos (auto) Total Counted Seg Neutrophils % Seg Neuts % (Manual) Band Neutrophils % Lymphocytes % Lymphocytes % (Manual) Monocytes % Monocytes % (Manual) Eosinophils % Eosinophils % (Manual) Basophils % Basophils % (Manual) Absolute Neutrophils Abs Neuts (Manual) Absolute Lymphocytes Abs Lymphs (Manual) Absolute Monocytes Abs Monocytes (Manual) Absolute Eosinophils Absolute Eos (Manual) Absolute Basophils Abs Basophils (Manual) Platelet Comment Polychromasia Anisocytosis PT INR APTT Carbonic Acid HCO3/H2CO3 Ratio ABG pH ABG pCO2 ABG pO2 ABG HCO3 ABG Total CO2 ABG O2 Saturation ABG Base Excess FiO2 Sodium 134.6 L Potassium 4.9 Chloride 98 Carbon Dioxide 26 Anion Gap 11 BUN 38 H Creatinine 2.36 H Est GFR ( Amer) 35 L Est GFR (Non-Af Amer) 29 L Est GFR (MDRD) Non-Af Glucose 156 H POC Glucose Hemoglobin A1c % 6.1 H Lactic Acid Calcium 8.9 Magnesium 2.0 Total Bilirubin 0.8 Direct Bilirubin 0.3 Neonat Total Bilirubin Not Reportable Neonat Direct Bilirubin Not Reportable Neonat Indirect Bili Not Reportable AST 30 ALT 29 Alkaline Phosphatase 70 Creatine Kinase 383 H CK-MB (CK-2) 5.27 H Troponin I 1.090 NT-Pro-B Natriuret Pep 6370 H Total Protein 6.3 Albumin 3.4 L Triglycerides 113 Cholesterol 142.74 LDL Cholesterol Direct 110 H VLDL Cholesterol 22.6 HDL Cholesterol 37 L Urine Color Urine Appearance Urine pH Ur Specific [place] Urine Protein Urine Glucose (UA) Urine Ketones Urine Blood Urine Nitrite Urine Bilirubin Urine Urobilinogen Ur Leukocyte Esterase Urine WBC (Auto) Urine RBC (Auto) U Hyaline Cast (Auto) Urine Bacteria (Auto) Squamous Epi Cells Auto Urine Mucus (Auto) Urine Ascorbic Acid 03/13/19 03/13/19 03/13/19 09:13 11:26 11:37 WBC RBC Hgb Hct MCV MCH MCHC RDW Plt Count Lymph % (Auto) [place] % (Auto) Eos % (Auto) Baso % (Auto) Absolute Neuts (auto) Absolute Lymphs (auto) Absolute Monos (auto) Absolute Eos (auto) Absolute Basos (auto) Total Counted Seg Neutrophils % Seg Neuts % (Manual) Band Neutrophils % Lymphocytes % Lymphocytes % (Manual) Monocytes % Monocytes % (Manual) Eosinophils % Eosinophils % (Manual) Basophils % Basophils % (Manual) Absolute Neutrophils Abs Neuts (Manual) Absolute Lymphocytes Abs Lymphs (Manual) Absolute Monocytes Abs Monocytes (Manual) Absolute Eosinophils Absolute Eos (Manual) Absolute Basophils Abs Basophils (Manual) Platelet Comment Polychromasia Anisocytosis PT INR APTT Carbonic Acid HCO3/H2CO3 Ratio ABG pH ABG pCO2 ABG pO2 ABG HCO3 ABG Total CO2 ABG O2 Saturation ABG Base Excess FiO2 Sodium Potassium Chloride Carbon Dioxide Anion Gap BUN Creatinine Est GFR ( Amer) Est GFR (Non-Af Amer) Est GFR (MDRD) Non-Af Glucose POC Glucose 184 H 168 H Hemoglobin A1c % Lactic Acid Calcium Magnesium Total Bilirubin Direct Bilirubin Neonat Total Bilirubin Neonat Direct Bilirubin Neonat Indirect Bili AST ALT Alkaline Phosphatase Creatine Kinase 346 H CK-MB (CK-2) Troponin I NT-Pro-B Natriuret Pep Total Protein Albumin Triglycerides Cholesterol LDL Cholesterol Direct VLDL Cholesterol HDL Cholesterol Urine Color Urine Appearance Urine pH Ur Specific [place] Urine Protein Urine Glucose (UA) Urine Ketones Urine Blood Urine Nitrite Urine Bilirubin Urine Urobilinogen Ur Leukocyte Esterase Urine WBC (Auto) Urine RBC (Auto) U Hyaline Cast (Auto) Urine Bacteria (Auto) Squamous Epi Cells Auto Urine Mucus (Auto) Urine Ascorbic Acid 03/13/19 03/13/19 03/13/19 11:37 11:52 12:25 WBC 22.3 H RBC 4.95 Hgb 14.0 Hct 42.0 MCV 85 MCH 28.3 MCHC 33.4 RDW 16.3 H Plt Count 218 Lymph % (Auto) Not Reportable [place] % (Auto) Not Reportable Eos % (Auto) Not Reportable Baso % (Auto) Not Reportable Absolute Neuts (auto) Not Reportable Absolute Lymphs (auto) Not Reportable Absolute Monos (auto) Not Reportable Absolute Eos (auto) Not Reportable Absolute Basos (auto) Not Reportable Total Counted 100 Seg Neutrophils % Not Reportable Seg Neuts % (Manual) 79 H Band Neutrophils % 1 L Lymphocytes % Lymphocytes % (Manual) 11 L Monocytes % Monocytes % (Manual) 8 Eosinophils % Eosinophils % (Manual) 0 Basophils % Basophils % (Manual) 1 Absolute Neutrophils Abs Neuts (Manual) 17.8 H Absolute Lymphocytes Abs Lymphs (Manual) 2.5 Absolute Monocytes Abs Monocytes (Manual) 1.8 H Absolute Eosinophils Absolute Eos (Manual) 0.0 Absolute Basophils Abs Basophils (Manual) 0.2 Platelet Comment ADEQUATE Polychromasia SLIGHT Anisocytosis 1+ PT INR APTT Carbonic Acid HCO3/H2CO3 Ratio ABG pH ABG pCO2 ABG pO2 ABG HCO3 ABG Total CO2 ABG O2 Saturation ABG Base Excess FiO2 Sodium Potassium Chloride Carbon Dioxide Anion Gap BUN Creatinine Est GFR ( Amer) Est GFR (Non-Af Amer) Est GFR (MDRD) Non-Af Glucose POC Glucose Hemoglobin A1c % Lactic Acid Calcium Magnesium Total Bilirubin Direct Bilirubin Neonat Total Bilirubin Neonat Direct Bilirubin Neonat Indirect Bili AST ALT Alkaline Phosphatase Creatine Kinase CK-MB (CK-2) 5.65 H Troponin I 0.840 NT-Pro-B Natriuret Pep Total Protein Albumin Triglycerides Cholesterol LDL Cholesterol Direct VLDL Cholesterol HDL Cholesterol Urine Color YELLOW Urine Appearance CLEAR Urine pH 6.0 Ur Specific [place] 1.019 Urine Protein NEGATIVE Urine Glucose (UA) NEGATIVE Urine Ketones NEGATIVE Urine Blood SMALL H Urine Nitrite NEGATIVE Urine Bilirubin NEGATIVE Urine Urobilinogen NEGATIVE Ur Leukocyte Esterase NEGATIVE Urine WBC (Auto) 2 Urine RBC (Auto) 4 U Hyaline Cast (Auto) 1 Urine Bacteria (Auto) Squamous Epi Cells Auto Urine Mucus (Auto) OCC Urine Ascorbic Acid NEGATIVE 03/13/19 03/13/19 03/13/19 12:25 16:46 18:15 WBC RBC Hgb Hct MCV MCH MCHC RDW Plt Count Lymph % (Auto) [place] % (Auto) Eos % (Auto) Baso % (Auto) Absolute Neuts (auto) Absolute Lymphs (auto) Absolute Monos (auto) Absolute Eos (auto) Absolute Basos (auto) Total Counted Seg Neutrophils % Seg Neuts % (Manual) Band Neutrophils % Lymphocytes % Lymphocytes % (Manual) Monocytes % Monocytes % (Manual) Eosinophils % Eosinophils % (Manual) Basophils % Basophils % (Manual) Absolute Neutrophils Abs Neuts (Manual) Absolute Lymphocytes Abs Lymphs (Manual) Absolute Monocytes Abs Monocytes (Manual) Absolute Eosinophils Absolute Eos (Manual) Absolute Basophils Abs Basophils (Manual) Platelet Comment Polychromasia Anisocytosis PT 14.7 INR 1.15 APTT 33.3 Cancelled Carbonic Acid HCO3/H2CO3 Ratio ABG pH ABG pCO2 ABG pO2 ABG HCO3 ABG Total CO2 ABG O2 Saturation ABG Base Excess FiO2 Sodium Potassium Chloride Carbon Dioxide Anion Gap BUN Creatinine Est GFR ( Amer) Est GFR (Non-Af Amer) Est GFR (MDRD) Non-Af Glucose POC Glucose 121 H Hemoglobin A1c % Lactic Acid Calcium Magnesium Total Bilirubin Direct Bilirubin Neonat Total Bilirubin Neonat Direct Bilirubin Neonat Indirect Bili AST ALT Alkaline Phosphatase Creatine Kinase CK-MB (CK-2) Troponin I NT-Pro-B Natriuret Pep Total Protein Albumin Triglycerides Cholesterol LDL Cholesterol Direct VLDL Cholesterol HDL Cholesterol Urine Color Urine Appearance Urine pH Ur Specific [place] Urine Protein Urine Glucose (UA) Urine Ketones Urine Blood Urine Nitrite Urine Bilirubin Urine Urobilinogen Ur Leukocyte Esterase Urine WBC (Auto) Urine RBC (Auto) U Hyaline Cast (Auto) Urine Bacteria (Auto) Squamous Epi Cells Auto Urine Mucus (Auto) Urine Ascorbic Acid 03/13/19 03/13/19 03/13/19 18:15 19:40 21:35 WBC RBC Hgb Hct MCV MCH MCHC RDW Plt Count Lymph % (Auto) [place] % (Auto) Eos % (Auto) Baso % (Auto) Absolute Neuts (auto) Absolute Lymphs (auto) Absolute Monos (auto) Absolute Eos (auto) Absolute Basos (auto) Total Counted Seg Neutrophils % Seg Neuts % (Manual) Band Neutrophils % Lymphocytes % Lymphocytes % (Manual) Monocytes % Monocytes % (Manual) Eosinophils % Eosinophils % (Manual) Basophils % Basophils % (Manual) Absolute Neutrophils Abs Neuts (Manual) Absolute Lymphocytes Abs Lymphs (Manual) Absolute Monocytes Abs Monocytes (Manual) Absolute Eosinophils Absolute Eos (Manual) Absolute Basophils Abs Basophils (Manual) Platelet Comment Polychromasia Anisocytosis PT INR APTT 46.9 H Carbonic Acid HCO3/H2CO3 Ratio ABG pH ABG pCO2 ABG pO2 ABG HCO3 ABG Total CO2 ABG O2 Saturation ABG Base Excess FiO2 Sodium 135.0 L Potassium 4.6 Chloride 99 Carbon Dioxide 26 Anion Gap 10 BUN 42 H Creatinine 1.71 H Est GFR ( Amer) 51 L Est GFR (Non-Af Amer) Est GFR (MDRD) Non-Af 42 L Glucose 115 H POC Glucose 136 H Hemoglobin A1c % Lactic Acid Calcium 9.2 Magnesium 2.1 Total Bilirubin Direct Bilirubin Neonat Total Bilirubin Neonat Direct Bilirubin Neonat Indirect Bili AST ALT Alkaline Phosphatase Creatine Kinase CK-MB (CK-2) Troponin I NT-Pro-B Natriuret Pep Total Protein Albumin Triglycerides Cholesterol LDL Cholesterol Direct VLDL Cholesterol HDL Cholesterol Urine Color Urine Appearance Urine pH Ur Specific [place] Urine Protein Urine Glucose (UA) Urine Ketones Urine Blood Urine Nitrite Urine Bilirubin Urine Urobilinogen Ur Leukocyte Esterase Urine WBC (Auto) Urine RBC (Auto) U Hyaline Cast (Auto) Urine Bacteria (Auto) Squamous Epi Cells Auto Urine Mucus (Auto) Urine Ascorbic Acid Chest X-Ray 03/12/19 18:27 IMPRESSION: Left upper lobe pneumonia. Chest X-Ray 03/13/19 00:00 IMPRESSION: Persistent patchy airspace disease within the left upper lobe compatible with pneumonia. IMPRESSION RECOMMENDATION: 1. Non-ST elevation MD: Started the patient on IV heparin infusion at full dose. Continue the patient's antiplatelet agents. Continue hydration. In view of the patient's blood pressure be being low we will hold off on beta-blockers for now. I am hopeful that the patient's renal function will normalized, at which time the patient can be transferred to a tertiary care center for cardiac catheterization, to assess the patency of the grafts and to look for any de rito coronary artery lesions. 2.Left upper lobe pneumonia: Continue antibiotics most likely this is secondary to aspiration 3. Acute renal failure secondary to dehydration. The GFR is come up to 42 with IV hydration. Continue IV hydration 4. Hypoxemia: Continue BiPAP to keep the O2 sats up 5. Severe dehydration secondary to food poisoning causing vomiting and diarrhea. At present this seems to resolved. Continue hydration 6. Coronary artery disease: History of left internal mammary artery insertion to the left anterior descending artery. Later once the blood pressure is stabilized would recommend maximizing anti-CAD medication. For now continue antiplatelet agents, along with heparin 7. History of hypertension:: At present blood pressure low normal due to dehydration. 8. Hyperlipidemia: Later continue statin. 9. The patient has symptoms of sleep apnea: Would recommend getting the patient an outpatient sleep study and if positive prescribe a CPAP or BiPAP. Patient reviewed. Medication adjustment and management plan discussed with the attending physician on the case. Medical decision making is of high complexity. 60 minutes spent on this patient with more than 50% of time spent in direct patient care discussed with the patient the patient's clinical condition the EKG changes and the elevated troponin I, his renal function. Will follow.
[2019-03-14] MEDS: RINGERS SOLUTION,LACTATED 1,000 ML IV PRN ×2 (03:59→08:05)
[2019-03-14] MEDS: PANTOPRAZOLE SODIUM 40 MG TABLET.DR PO SCH ×2 (06:04→17:28)
[2019-03-14] MEDS: HEPARIN SODIUM,PORCINE/D5W 25,000 UNIT/250 ML RTUINJ IV PRN ×2 (06:09→21:11)
[2019-03-14 06:41] LABS: HEMATOCRIT 39.6 % (37.9-51.0); HEMOGLOBIN 12.9 g/dL (13.5-17.0); MEAN CORPUSCULAR HEMOGLOBIN 27.9 pg (27.0-33.4); MEAN CORPUSCULAR HGB CONC 32.5 g/dL (32.0-36.0); MEAN CORPUSCULAR VOLUME 86 fl (80-97); PLATELET COUNT 209 10^3/uL (150-450); RED BLOOD COUNT 4.61 10^6/uL (4.35-5.55); RED CELL DISTRIBUTION WIDTH 16.1 % (11.5-14.0); WHITE BLOOD COUNT 17.1 10^3/uL (4.0-10.5)
[2019-03-14 06:55] LABS: ALBUMIN 3.1 g/dL (3.5-5.0); ALKALINE PHOSPHATASE 64 U/L (38-126); ANION GAP 8 (5-19); ASPARTATE AMINO TRANSFERASE 50 U/L (17-59); BILIRUBIN,DIRECT 0.2 mg/dL (0.0-0.4); BILIRUBIN,TOTAL 0.5 mg/dL (0.2-1.3); BLOOD UREA NITROGEN 42 mg/dL (7-20); CALCIUM 8.6 mg/dL (8.4-10.2); CARBON DIOXIDE 29 mmol/L (22-30); CHLORIDE 99 mmol/L (98-107); GLUCOSE 111 mg/dL (75-110); POTASSIUM 4.4 mmol/L (3.6-5.0); TOTAL PROTEIN 5.6 g/dL (6.3-8.2)
[2019-03-14] MEDS: AZITHROMYCIN 500 MG in DEXTROSE 5%-WATER 250 ML IV SCH (08:08)
[2019-03-14] MEDS: INSULIN REG, HUMAN 100 UNIT/ML 3 ML VIAL (PYX) SUBCUT SCH ×3 (09:49→16:13)
[2019-03-14] MEDS: LOSARTAN POTASSIUM 50 MG TABLET PO SCH (10:03)
[2019-03-14] MEDS: ASPIRIN 81 MG TABLET, ENT COATED PO SCH (10:03)
[2019-03-14] MEDS: CLOPIDOGREL BISULFATE 75 MG TABLET PO SCH (10:04)
[2019-03-14] MEDS: DOCUSATE SODIUM 100 MG CAPSULE PO SCH ×2 (10:04→17:29)
[2019-03-14] MEDS: GUAIFENESIN 600 MG TABLET.SA PO SCH ×2 (10:04→21:09)
[2019-03-14] MEDS: LACTOBACILLUS ACIDOPHILUS 250 MG TAB PO SCH ×2 (10:05→17:29)
[2019-03-14] MEDS: METOPROLOL SUCCINATE 50 MG TAB.SR.24H PO SCH (10:05)
[2019-03-14] MEDS: CEFTRIAXONE 1 GM/D5W RTU 1 GM/50 ML RTUPB IV SCH (10:06)
--- NOTE | 2019-03-14 11:08 | PDOC PROGRESS REPORT ---
Subjective Progress Note for:: 03/14/19 Subjective:: Patient is resting comfortably. He is on high flow nasal cannula. He is breathing without difficulty. He notes that his breathing is better than yesterday. Reason For Visit: N STEMI, SYNCOPAL EPISODE, SIRS, PNEUMONIA Physical Exam Vital Signs: Temp Pulse Resp BP Pulse Ox 97.7 F 106 H 21 H 104/50 L 96 03/14/19 08:00 03/14/19 10:14 03/14/19 10:14 03/14/19 10:14 03/14/19 10:14 Intake & Output 03/13/19 03/14/19 03/15/19 06:59 06:59 06:59 Intake Total 2500 5690 1480 Output Total 270 1765 450 Balance 2230 3925 1030 Weight 190.5 kg 196.6 kg General appearance: PRESENT: no acute distress, cooperative, morbidly obese, well-developed Head exam: PRESENT: atraumatic, normocephalic Eye exam: PRESENT: conjunctiva pink. ABSENT: scleral icterus Ear exam: PRESENT: normal external ear exam. ABSENT: bleeding, drainage Mouth exam: PRESENT: moist, tongue midline Teeth exam: ABSENT: dental tenderness - [id number], poor dentation Neck exam: PRESENT: other - Very large neck. ABSENT: JVD, lymphadenopathy Respiratory exam: PRESENT: clear to auscultation alice, decreased breath sounds - At both bases likely due to body habitus, symmetrical, unlabored. ABSENT: rales, rhonchi, tachypnea, wheezes Cardiovascular exam: PRESENT: RRR, +S1, +S2, other - Distant heart sounds due to body habitus. ABSENT: diastolic murmur, systolic murmur Pulses: PRESENT: normal radial pulses, normal dorsalis pedis pul GI/Abdominal exam: PRESENT: distended - Protuberant abdomen, normal bowel sounds, soft. ABSENT: guarding, tenderness Rectal exam: PRESENT: deferred Extremities exam: ABSENT: joint swelling, pedal edema, tenderness Neurological exam: PRESENT: alert, awake, oriented to person, oriented to place, oriented to time, oriented to situation, CN II-XII grossly intact. ABSENT: motor sensory deficit Psychiatric exam: PRESENT: appropriate affect, normal mood. ABSENT: agitated, anxious Focused psych exam: ABSENT: delusional, restlessness Skin exam: PRESENT: dry, normal color, warm. ABSENT: rash Results Laboratory Results: 03/14/19 06:21 03/14/19 06:21 03/13/19 03/13/19 03/13/19 11:52 12:25 18:15 WBC 22.3 H RBC 4.95 Hgb 14.0 Hct 42.0 MCV 85 MCH 28.3 MCHC 33.4 RDW 16.3 H Plt Count 218 Seg Neutrophils % Not Reportable Sodium 135.0 L Potassium 4.6 Chloride 99 Carbon Dioxide 26 Anion Gap 10 BUN 42 H Creatinine 1.71 H Est GFR ( Amer) 51 L Glucose 115 H Calcium 9.2 Magnesium 2.1 Total Bilirubin AST Alkaline Phosphatase Total Protein Albumin Urine Color YELLOW Urine Appearance CLEAR Urine pH 6.0 Ur Specific [place] 1.019 Urine Protein NEGATIVE Urine Glucose (UA) NEGATIVE Urine Ketones NEGATIVE Urine Blood SMALL H Urine Nitrite NEGATIVE Ur Leukocyte Esterase NEGATIVE Urine WBC (Auto) 2 Urine RBC (Auto) 4 03/14/19 03/14/19 06:21 06:21 WBC 17.1 H RBC 4.61 Hgb 12.9 L Hct 39.6 MCV 86 MCH 27.9 MCHC 32.5 RDW 16.1 H Plt Count 209 Seg Neutrophils % Sodium 135.8 L Potassium 4.4 Chloride 99 Carbon Dioxide 29 Anion Gap 8 BUN 42 H Creatinine 1.70 H Est GFR ( Amer) 51 L Glucose 111 H Calcium 8.6 Magnesium 2.1 Total Bilirubin 0.5 AST 50 Alkaline Phosphatase 64 Total Protein 5.6 L Albumin 3.1 L Urine Color Urine Appearance Urine pH Ur Specific [place] Urine Protein Urine Glucose (UA) Urine Ketones Urine Blood Urine Nitrite Ur Leukocyte Esterase Urine WBC (Auto) Urine RBC (Auto) 03/12/19 18:48 Catheterized Urine Urine Culture - Final NO GROWTH 2 DAYS 03/12/19 03/13/19 03/13/19 18:26 01:48 01:48 Creatine Kinase 407 H CK-MB (CK-2) 4.76 H Troponin I 1.170 1.350 NT-Pro-B Natriuret Pep 03/13/19 03/13/19 03/13/19 05:09 05:09 11:37 Creatine Kinase 383 H 346 H CK-MB (CK-2) 5.27 H Troponin I 1.090 NT-Pro-B Natriuret Pep 6370 H 03/13/19 03/14/19 11:37 08:16 Creatine Kinase CK-MB (CK-2) 5.65 H Troponin I 0.840 0.513 NT-Pro-B Natriuret Pep Impressions: Chest X-Ray 03/13/19 00:00 IMPRESSION: Persistent patchy airspace disease within the left upper lobe compatible with pneumonia. Assessment and Plan - Diagnosis (1) Episode of syncope Qualifiers: Syncope type: unspecified Qualified Code(s): R55 - Syncope and collapse Is this a current diagnosis for this admission?: Yes Plan: 03/13/2019-the patient elaborated on his illness over the last 5 to 6 days. On Monday he had food poisoning. This caused nausea, vomiting and significant diarrhea. For approximately 3 to 4 days he was unable to hold down much food and limited liquids. He used Gatorade to keep up with electrolytes. His volume replacement was most likely inadequate due to his underlying symptoms. He states that his stools were just starting to improve yesterday when he had this event. This certainly makes his syncope more likely vasovagal due to low volume coupled with the pneumonia, acute kidney injury and non-ST elevated myocardial infarction. He is being monitored on telemetry in the ICU. No further episodes of lightheadedness, dizziness or syncope. 03/14/2019-no recurrent symptoms of lightheadedness dizziness or passing out. Syncope resolved. (2) NSTEMI (non-ST elevated myocardial infarction) Is this a current diagnosis for this admission?: Yes Plan: 03/13/2019-the patient has in fact had a non-ST elevated myocardial infarction. The troponin peaked at 1.35 and is now down to 0.840. He does have a history of FIELD. With his acute kidney injury he is not a candidate for catheterization at this time however we will likely transfer to [facility] for cardiac catheterization prior to his discharge. Dr. Sage is the aircraft structural repair mechanic currently on board. His outpatient aircraft structural repair mechanic is Dr. Franco. He also exhibits acute changes on his EKG. Currently he is pain-free. He is on a heparin infusion. We are also continuing Plavix. He does have sublingual nitroglycerin available if needed. 03/14/2019-the patient will need cardiac catheterization. We have been working with Dr. Sage. The patient should be stable for transfer to [facility] for the procedure. (3) Left upper lobe pneumonia Qualifiers: Pneumonia type: due to unspecified organism Qualified Code(s): J18.1 - Lobar pneumonia, unspecified organism Is this a current diagnosis for this admission?: Yes Plan: 03/13/2019-the patient has experienced nausea, vomiting and diarrhea over the last 4 to 5 days. The left upper lobe is not characteristically associated with aspiration. This is more likely a community-acquired pneumonia. We will continue the Rocephin and azithromycin at this time. If needed, dosing will be adjusted for renal function. Sputum specimen was not available for culture. The patient's white blood cell count did go up today. There are several reasons for this including the pneumonia as well as the myocardial infarction. We will continue to monitor his white blood cell count. He has remained afebrile. 03/14/2019-he is feeling much better. White blood cell count is down to 17,000 from 22,000. Continue azithromycin and Rocephin. (4) Acute respiratory failure with hypoxia Is this a current diagnosis for this admission?: Yes Plan: 03/13/2019-the patient exhibited increased work of breathing with hypoxia. He required BiPAP and supplemental oxygen to keep saturation greater than 90%. We are currently attempting to wean the patient from BiPAP to high flow nasal cannula as noted above. This will likely be a slow process. The patient does not report a history of chronic obstructive pulmonary disease and he is on no scheduled inhalers at home. Xopenex nebulizer is available as needed. 03/14/2019-the patient is tolerating high flow nasal cannula. I did asked patient about obstructive sleep apnea. He said he underwent a sleep study but it was inadequate. He was asked to return for repeat study but never did. It is likely that he does have obstructive sleep apnea and would benefit as an outpatient from a new polysomnogram and likely BiPAP at home. We will continue to try to wean him from the oxygen as he is not on oxygen therapy at home. (5) SIRS (systemic inflammatory response syndrome) Is this a current diagnosis for this admission?: Yes Plan: 03/13/2019-the patient just meets criteria for sepsis. He exhibited hypoxemia requiring BiPAP and supplemental oxygen. He does exhibit acute kidney injury as well. The sepsis is likely due to the combination of pneumonia, non-ST elevation myocardial infarction and recent gastrointestinal illness. The patient is receiving fluid hydration. A repeat metabolic panel is pending. He has a history of cardiac bypass and I do not want to fluid overload the patient. As we start to see improvement in the renal function I will begin to decrease the IV fluids. As his appetite improves and he is able to take more fluid by mouth we can also decrease the IV fluid. He is receiving antibiotics for the pneumonia as well. 03/14/2019-resolved (6) DULCE (acute kidney injury) Is this a current diagnosis for this admission?: Yes Plan: 03/13/2019-as noted above the patient had a significant gastrointestinal illness for the last 5 or 6 days. The acute kidney injury is likely a combination of decreased intake and increased output. He is receiving aggressive hydration. We have serial chemistry panels ordered. As the kidney function improves I will be able to decrease the volume. His urine output appears to be picking up. Continue to monitor chemistries as noted above. Consider nephrology consult if the kidneys did not respond to the current treatment plan. 03/14/2019-serum creatinine is 1.7 again. Review of old chemistries reveals that this appears to be his baseline when compared to a blood test in September. Continue to monitor renal function. (7) Hyperglycemia Is this a current diagnosis for this admission?: Yes Plan: 03/13/2019-the patient does not have a history of diabetes. His hemoglobin A1c in fact was 6.1%. I believe he is exhibiting transient hyperglycemia likely due to physiologic stress. I will also need to review his medications to see if any of the medicines are mixed in the dextrose solution. He does have sliding scale on board. This should be enough for control of his sugar. 03/14/2019-the patient had a hyperglycemia on admission. Has no history of diabetes. His Accu-Cheks were all within normal limits and therefore Accu-Cheks and sliding scale were discontinued. (8) Leukocytosis Qualifiers: Leukocytosis type: unspecified Qualified Code(s): D72.829 - Elevated white blood cell count, unspecified Is this a current diagnosis for this admission?: Yes Plan: 03/13/2019-the patient's white blood cell count in fact has gone up. This is likely response to the myocardial infarction but also could be ongoing from the pneumonia since he has only received several doses of antibiotic therapy. We will continue to monitor his white blood cell count. Clinically he looks improved and I expect the white blood cell count to follow. 03/14/2019-as noted above the white blood cell count is trending down. It is 17,000 today and was 22,000 yesterday. Continue to monitor. (9) Morbid obesity Is this a current diagnosis for this admission?: Yes Plan: 03/13/2019-the patient's BMI is 57. This is certainly a factor in his chronic illness. He will likely participate in cardiac rehab after a cardiac catheterization evaluation. At this point he would benefit from a weight loss program as opposed to self dieting. 03/14/2019-a significant risk factor. Obesity hypoventilation could be contribu ting to his slow recovery and certainly part of an obstructive sleep apnea picture. It inhibits his activity level as well. He should consider aggressive weight loss with a weight loss management program as opposed to dieting on his own. - Time Time Spent with patient: 15-24 minutes Medications reviewed and adjusted accordingly: Yes - Plan Summary Plan Summary: Will recheck chemistries this evening. Will likely transfer to [facility] for cardiac catheterization. Not stable to discharge to home with current oxygen requirements.
--- NOTE | 2019-03-14 20:40 | EKG REPORT ---
SEVERITY:- ABNORMAL ECG - SINUS RHYTHM NONSPECIFIC T ABNORMALITIES, DIFFUSE LEADS BORDERLINE PROLONGED QT INTERVAL : Confirmed by: Sheial Sage MD 14-Mar-2019 20:39:47
[2019-03-14] MEDS: ATORVASTATIN CALCIUM 80 MG TABLET PO SCH (21:09)
[2019-03-14 21:46] LABS: ANION GAP 6 (5-19); BLOOD UREA NITROGEN 36 mg/dL (7-20); CALCIUM 9.1 mg/dL (8.4-10.2); CARBON DIOXIDE 31 mmol/L (22-30); CHLORIDE 99 mmol/L (98-107); GLUCOSE 94 mg/dL (75-110)
--- NOTE | 2019-03-14 21:58 | Progress Note ---
Provider Note Provider Note: CARDIOLOGY PROGRESS NOTE by Dr. Sheila Tolentino on 03/14/2019. SUBJECTIVE: The patient has no chest pain or discomfort. He has very minimal cough. The patient has no PND orthopnea. The patient uses nasal BiPAP. There is no arrhythmia seen on the monitor. There is no leg edema. There is no TIA CVA symptoms.. PHYSICAL EXAMINATION: The patient morbidly obese. In no acute distress. Selected Entries 03/14/19 03/14/19 08:07 09:00 Core 97.9 F Temperature Heart Rate ( 89 Monitors) Respiratory 23 H Rate Blood Pressure 91/72 L Blood Pressure 78 Mean O2 Sat by Pulse 90 L Oximetry HEAD: Is atraumatic normocephalic. EYES: Pupils equal round regular reactive to light and accommodation. Extraocular movements are normal. There is no conjunctival pallor. There is no scleral icterus. EARS: Panic membranes are intact. External auditory canals are clear. NOSE: There is no deviated nasal septum. There is no inflammation of the nasal mucous membrane. MOUTH: Mucous memories of mouth and tongue are very dry. There is no bleeding from the gums. THROAT: There is no redness of the oropharynx. There is no exudates. SKIN: Skin turgor is reduced. There is no petechia or ecchymosis. There is no skin rashes or skin lesions. NECK: Is supple. There is no JVD. Carotids are equal there is no bruit. There is no goiter. There is no adenopathy. There is no accessory muscles of respiration use. Trachea central LUNGS: There are a few dry crackles in the left upper lobe consistent with pneumonia. Rest of the lungs are clear. There is no rales of CHF. There is no rhonchi or wheezing. HEART: S1-S2 is heard. There is no S3 gallop. There is no S4 gallop. There is systolic murmur left sternal border and the apex there is no rub. ABDOMEN: Is obese: Nontender. There is no hepatospleno megaly bowel sounds are well heard. There is no tender areas masses. EXTREMITIES: Femorals are deep. Femorals are diminished. Leg pulses are diminished. There is trace pedal edema bilaterally. There is no cyanosis or clubbing. There is no DVT or cellulitis. PROGRAM ARRANGER: The patient is conscious awake alert oriented x3 with no focal deficits. PSYCHIATRIC: The patient judgment insight are intact his affect is normal. 03/14/19 03/14/19 06:21 21:16 WBC 17.1 H RBC 4.61 Hgb 12.9 L Hct 39.6 MCV 86 MCH 27.9 MCHC 32.5 RDW 16.1 H Plt Count 209 Sodium 135.8 L Potassium 4.0 Chloride 99 Carbon Dioxide 31 H Anion Gap 6 BUN 36 H Creatinine 1.61 H Est GFR (MDRD) Non-Af 45 L Glucose 94 Calcium 9.1 The patient's EKG shows sinus rhythm with anterolateral T wave inversion consistent with ischemia. Chest X-Ray 03/12/19 18:27 IMPRESSION: Left upper lobe pneumonia. Chest X-Ray 03/13/19 00:00 IMPRESSION: Persistent patchy airspace disease within the left upper lobe compatible with pneumonia. IMPRESSION RECOMMENDATION: 1. Non-ST elevation RI: Started the patient on IV heparin infusion at full dose. Continue the patient's antiplatelet agents. Continue hydration. In view of the patient's blood pressure be being low we will hold off on beta-blockers for now. I am hopeful that the patient's renal function will normalized, at which time the patient can be transferred to a tertiary care center for cardiac catheterization, to assess the patency of the grafts and to look for any de rito coronary artery lesions. 2.Left upper lobe pneumonia: Continue antibiotics most likely this is secondary to aspiration 3. Acute renal failure secondary to dehydration. The GFR is come up to 42 with IV hydration. Continue IV hydration 4. Hypoxemia: Continue BiPAP to keep the O2 sats up 5. Severe dehydration secondary to food poisoning causing vomiting and diarrhea. At present this seems to resolved. Continue hydration 6. Coronary artery disease: History of left internal mammary artery insertion to the left anterior descending artery. Later once the blood pressure is stabilized would recommend maximizing anti-CAD medication. For now continue antiplatelet agents, along with heparin 7. History of hypertension:: At present blood pressure low normal due to dehydration. 8. Hyperlipidemia: Later continue statin. 9. The patient has symptoms of sleep apnea: Would recommend getting the patient an outpatient sleep study and if positive prescribe a CPAP or BiPAP. Medications reviewed medication adjusted management plan and medical regimen discussed with the attending provider on the case. Medical decision making is of high complexity. 40 minutes spent on this patient more than 50% of time spent under patient care. Will follow.
[2019-03-15 05:33] LABS: HEMATOCRIT 39.3 % (37.9-51.0); HEMOGLOBIN 13.2 g/dL (13.5-17.0); MEAN CORPUSCULAR HEMOGLOBIN 28.3 pg (27.0-33.4); MEAN CORPUSCULAR HGB CONC 33.5 g/dL (32.0-36.0); MEAN CORPUSCULAR VOLUME 85 fl (80-97); PLATELET COUNT 209 10^3/uL (150-450); RED BLOOD COUNT 4.65 10^6/uL (4.35-5.55); RED CELL DISTRIBUTION WIDTH 16.3 % (11.5-14.0); WHITE BLOOD COUNT 12.6 10^3/uL (4.0-10.5)
[2019-03-15] MEDS: PANTOPRAZOLE SODIUM 40 MG TABLET.DR PO SCH ×2 (05:40→18:40)
[2019-03-15 05:53] LABS: ALBUMIN 3.3 g/dL (3.5-5.0); ALKALINE PHOSPHATASE 79 U/L (38-126); ANION GAP 9 (5-19); ASPARTATE AMINO TRANSFERASE 40 U/L (17-59); BILIRUBIN,DIRECT 0.2 mg/dL (0.0-0.4); BILIRUBIN,TOTAL 0.6 mg/dL (0.2-1.3); BLOOD UREA NITROGEN 35 mg/dL (7-20); CARBON DIOXIDE 29 mmol/L (22-30); CHLORIDE 98 mmol/L (98-107); GLUCOSE 91 mg/dL (75-110); POTASSIUM 4.3 mmol/L (3.6-5.0); TOTAL PROTEIN 5.7 g/dL (6.3-8.2)
[2019-03-15] MEDS: HEPARIN SOD (PORCINE) 1,000 UNIT/ML 10 ML VIAL IV PRN (06:15)
[2019-03-15] MEDS: HEPARIN SODIUM,PORCINE/D5W 25,000 UNIT/250 ML RTUINJ IV PRN ×2 (10:49→22:00)
[2019-03-15] MEDS: AZITHROMYCIN 500 MG in DEXTROSE 5%-WATER 250 ML IV SCH (10:51)
[2019-03-15] MEDS: CEFTRIAXONE 1 GM/D5W RTU 1 GM/50 ML RTUPB IV SCH (10:52)
[2019-03-15] MEDS: LOSARTAN POTASSIUM 50 MG TABLET PO SCH (10:54)
[2019-03-15] MEDS: ASPIRIN 81 MG TABLET, ENT COATED PO SCH (10:54)
[2019-03-15] MEDS: LACTOBACILLUS ACIDOPHILUS 250 MG TAB PO SCH ×2 (10:54→18:49)
[2019-03-15] MEDS: CLOPIDOGREL BISULFATE 75 MG TABLET PO SCH (10:54)
[2019-03-15] MEDS: DOCUSATE SODIUM 100 MG CAPSULE PO SCH ×2 (10:54→18:50)
[2019-03-15] MEDS: METOPROLOL SUCCINATE 50 MG TAB.SR.24H PO SCH (10:54)
[2019-03-15] MEDS: GUAIFENESIN 600 MG TABLET.SA PO SCH ×2 (10:54→22:00)
--- NOTE | 2019-03-15 12:26 | EKG REPORT ---
SEVERITY:- ABNORMAL ECG - SINUS TACHYCARDIA ABNORMAL T, CONSIDER ISCHEMIA, LATERAL LEADS : Confirmed by: Sheila Sage MD 15-Mar-2019 12:25:32
[2019-03-15 12:34] LABS: APPEARANCE,URINE CLEAR; BILIRUBIN,URINE NEGATIVE (NEGATIVE); COLOR,URINE STRAW; GLUCOSE, URINE NEGATIVE (NEGATIVE); KETONES,URINE NEGATIVE (NEGATIVE); LEUKOCYTE ESTERASE,URINE TRACE (NEGATIVE); NITRITE,URINE NEGATIVE (NEGATIVE); PROTEIN,URINE NEGATIVE (NEGATIVE); UROBILINOGEN,URINE NEGATIVE mg/dL (<2.0)
--- NOTE | 2019-03-15 12:41 | RADIOLOGY REPORT (SQ) ---
EXAM DESCRIPTION: CHEST SINGLE VIEW COMPLETED DATE/TIME: 03/15/2019 12:29 pm REASON FOR STUDY: [place] COMPARISON: 03/13/2019 NUMBER OF VIEWS: One view. TECHNIQUE: Single frontal radiographic view of the chest acquired. LIMITATIONS: None. FINDINGS: LUNGS AND PLEURA: Minimal residual airspace disease in the left upper lobe this is improve d since the initial film done on 03/12/2019. Lung murray are otherwise clear. MEDIASTINUM AND HILAR STRUCTURES: No masses. Contour normal. HEART AND VASCULAR STRUCTURES: Stable in appearance slightly enlarged. No failure. BONES: No acute findings. HARDWARE: Sternotomy wires are in place. OTHER: No other significant finding. IMPRESSION: Minimal residual airspace disease in the left upper lobe. TECHNICAL DOCUMENTATION: JOB ID: [id number] [email or web address]- All Rights Reserved Reading location - IP/workstation name: [email or web address]
--- NOTE | 2019-03-15 17:34 | PDOC PROGRESS REPORT ---
Subjective Progress Note for:: 03/15/19 Subjective:: The patient is resting comfortably in bed. He is still on high flow nasal cannula. It was reported that he did not tolerate CPAP last night as it was uncomfortable. He is clearly at risk for obstructive sleep apnea. I will review the importance of BiPAP with him. Reason For Visit: N STEMI, SYNCOPAL EPISODE, SIRS, PNEUMONIA Physical Exam Vital Signs: Temp Pulse Resp BP Pulse Ox 98.5 F 77 20 135/74 H 92 03/15/19 14:59 03/15/19 14:59 03/15/19 16:30 03/15/19 14:59 03/15/19 16:30 Intake & Output 03/14/19 03/15/19 03/16/19 06:59 06:59 06:59 Intake Total 5690 3410 798 Output Total 1765 2850 1820 Balance 3925 560 -1022 Weight 196.6 kg 196.6 kg General appearance: PRESENT: no acute distress, cooperative, morbidly obese, well-developed, other - Resting comfortably in bed on high flow nasal cannula Head exam: PRESENT: atraumatic, normocephalic Eye exam: PRESENT: conjunctiva pink, EOMI. ABSENT: scleral icterus Ear exam: PRESENT: normal external ear exam. ABSENT: bleeding, drainage Mouth exam: PRESENT: moist, tongue midline Teeth exam: ABSENT: dental tenderness, poor dentation Neck exam: PRESENT: full ROM, other - Very large neck. ABSENT: carotid bruit, JVD, lymphadenopathy Respiratory exam: PRESENT: clear to auscultation alice, decreased breath sounds - At the bases, symmetrical, unlabored. ABSENT: accessory muscle use, rales, rhonchi, tachypnea, wheezes Cardiovascular exam: PRESENT: RRR, +S1, +S2, other - Distant heart sounds due to body habitus. ABSENT: diastolic murmur, systolic murmur GI/Abdominal exam: PRESENT: diminished bowel sounds - Likely due to body habitus, soft, other - Pendulous abdomen. ABSENT: guarding, tenderness Rectal exam: PRESENT: deferred Gentrourinary exam: ABSENT: indwelling catheter Extremities exam: PRESENT: joint swelling - Ankle edema, pedal edema. ABSENT: tenderness Musculoskeletal exam: PRESENT: ambulatory. ABSENT: deformity, tenderness Neurological exam: PRESENT: alert, awake, oriented to person, oriented to place, oriented to time, oriented to situation, CN II-XII grossly intact. ABSENT: mo tor sensory deficit Psychiatric exam: PRESENT: appropriate affect, normal mood. ABSENT: agitated, anxious Focused psych exam: ABSENT: delusional, restlessness Skin exam: PRESENT: dry, normal color, warm. ABSENT: mottled, rash Results Laboratory Results: 03/15/19 04:57 03/15/19 04:57 03/14/19 03/15/19 03/15/19 21:16 04:57 04:57 WBC 12.6 H RBC 4.65 Hgb 13.2 L Hct 39.3 MCV 85 MCH 28.3 MCHC 33.5 RDW 16.3 H Plt Count 209 Sodium 135.8 L 135.5 L Potassium 4.0 4.3 Chloride 99 98 Carbon Dioxide 31 H 29 Anion Gap 6 9 BUN 36 H 35 H Creatinine 1.61 H 1.45 H Est GFR ( Amer) 54 L > 60 Glucose 94 91 Calcium 9.1 9.0 Magnesium 2.2 Total Bilirubin 0.6 AST 40 Alkaline Phosphatase 79 Total Protein 5.7 L Albumin 3.3 L Urine Color Urine Appearance Urine pH Ur Specific [place] Urine Protein Urine Glucose (UA) Urine Ketones Urine Blood Urine Nitrite Ur Leukocyte Esterase Urine WBC (Auto) Urine RBC (Auto) 03/15/19 12:20 WBC RBC Hgb Hct MCV MCH MCHC RDW Plt Count Sodium Potassium Chloride Carbon Dioxide Anion Gap BUN Creatinine Est GFR ( Amer) Glucose Calcium Magnesium Total Bilirubin AST Alkaline Phosphatase Total Protein Albumin Urine Color STRAW Urine Appearance CLEAR Urine pH 6.0 Ur Specific [place] 1.010 Urine Protein NEGATIVE Urine Glucose (UA) NEGATIVE Urine Ketones NEGATIVE Urine Blood MODERATE H Urine Nitrite NEGATIVE Ur Leukocyte Esterase TRACE H Urine WBC (Auto) 1 Urine RBC (Auto) 20 03/12/19 03/13/19 03/13/19 18:26 01:48 01:48 Creatine Kinase 407 H CK-MB (CK-2) 4.76 H Troponin I 1.170 1.350 NT-Pro-B Natriuret Pep 03/13/19 03/13/19 03/13/19 05:09 05:09 11:37 Creatine Kinase 383 H 346 H CK-MB (CK-2) 5.27 H Troponin I 1.090 NT-Pro-B Natriuret Pep 6370 H 03/13/19 03/14/19 03/14/19 11:37 08:16 21:16 Creatine Kinase CK-MB (CK-2) 5.65 H Troponin I 0.840 0.513 0.493 NT-Pro-B Natriuret Pep 03/15/19 04:57 Creatine Kinase CK-MB (CK-2) Troponin I 0.399 NT-Pro-B Natriuret Pep Impressions: Chest X-Ray 03/15/19 00:00 IMPRESSION: Minimal residual airspace disease in the left upper lobe. Assessment and Plan - Diagnosis (1) Episode of syncope Qualifiers: Syncope type: unspecified Qualified Code(s): R55 - Syncope and collapse Is this a current diagnosis for this admission?: Yes Plan: 03/13/2019-the patient elaborated on his illness over the last 5 to 6 days. On Monday he had food poisoning. This caused nausea, vomiting and significant diarrhea. For approximately 3 to 4 days he was unable to hold down much food and limited liquids. He used Gatorade to keep up with electrolytes. His volume replacement was most likely inadequate due to his underlying symptoms. He states that his stools were just starting to improve yesterday when he had this event. This certainly makes his syncope more likely vasovagal due to low volume coupled with the pneumonia, acute kidney injury and non-ST elevated myocardial infarction. He is being monitored on telemetry in the ICU. No further episodes of lightheadedness, dizziness or syncope. 03/14/2019-no recurrent symptoms of lightheadedness dizziness or passing out. S yncope resolved. 03/15/2019-resolved. Etiology was likely a combination of his gastrointestinal illness with decreased intake combined with infection and acute kidney injury. (2) NSTEMI (non-ST elevated myocardial infarction) Is this a current diagnosis for this admission?: Yes Plan: 03/13/2019-the patient has in fact had a non-ST elevated myocardial infarction. The troponin peaked at 1.35 and is now down to 0.840. He does have a history of FIELD. With his acute kidney injury he is not a candidate for catheterization at this time however we will likely transfer to [facility] for cardiac catheterization prior to his discharge. Dr. Sage is the dealer account manager currently on board. His outpatient dealer account manager is Dr. Franco. He also exhibits acute changes on his EKG. Currently he is pain-free. He is on a heparin infusion. We are also continuing Plavix. He does have sublingual nitroglycerin available if needed. 03/14/2019-the patient will need cardiac catheterization. We have been working with Dr. Sage. The patient should be stable for transfer to [facility] for the procedure. 03/15/2019-troponins continue to improve. Still requires high flow nasal cannula with high FiO2. His creatinine is still elevated. Will need cardiac catheterization. Clearly cannot discharge on high flow nasal cannula. When creatinine normalizes consider transfer to a facility that can handle bariatric patients in their [place]. Consider transferring the patient to the facility where he had his FIELD performed (3) Left upper lobe pneumonia Qualifiers: Pneumonia type: due to unspecified organism Qualified Code(s): J18.1 - Lobar pneumonia, unspecified organism Is this a current diagnosis for this admission?: Yes Plan: 03/13/2019-the patient has experienced nausea, vomiting and diarrhea over the last 4 to 5 days. The left upper lobe is not characteristically associated with aspiration. This is more likely a community-acquired pneumonia. We will continue the Rocephin and azithromycin at this time. If needed, dosing will be adjusted for renal function. Sputum specimen was not available for culture. The patient's white blood cell count did go up today. There are several reasons for this including the pneumonia as well as the myocardial infarction. We will continue to monitor his white blood cell count. He has remained afebrile. 03/14/2019-he is feeling much better. White blood cell count is down to 17,000 from 22,000. Continue azithromycin and Rocephin. 03/15/2019-continue IV antibiotics. White blood cell count continues to improve is approaching normal. (4) Acute respiratory failure with hypoxia Is this a current diagnosis for this admission?: Yes Plan: 03/13/2019-the patient exhibited increased work of breathing with hypoxia. He required BiPAP and supplemental oxygen to keep saturation greater than 90%. We are currently attempting to wean the patient from BiPAP to high flow nasal cannula as noted above. This will likely be a slow process. The patient does not report a history of chronic obstructive pulmonary disease and he is on no scheduled inhalers at home. Xopenex nebulizer is available as needed. 03/14/2019-the patient is tolerating high flow nasal cannula. I did asked patient about obstructive sleep apnea. He said he underwent a sleep study but it was inadequate. He was asked to return for repeat study but never did. It is likely that he does have obstructive sleep apnea and would benefit as an outpatient from a new polysomnogram and likely BiPAP at home. We will continue to try to wean him from the oxygen as he is not on oxygen therapy at home. 03/15/2019-as noted above the patient still requires high flow nasal cannula with high volume oxygen. Explained to the patient that even though we can discharge people on oxygen (he was not on oxygen prior to admission) he cannot be done on high flow nasal cannula. Continue to wean his oxygen. This should improve as his pneumonia resolves. He likely has a component of morbid obesity hypoventilation syndrome. I encouraged him to be active as much as tolerated and I have ordered an incentive spirometer. (5) SIRS (systemic inflammatory response syndrome) Is this a current diagnosis for this admission?: Yes Plan: 03/13/2019-the patient just meets criteria for sepsis. He exhibited hypoxemia requiring BiPAP and supplemental oxygen. He does exhibit acute kidney injury as well. The sepsis is likely due to the combination of pneumonia, non-ST elevation myocardial infarction and recent gastrointestinal illness. The patient is receiving fluid hydration. A repeat metabolic panel is pending. He has a history of cardiac bypass and I do not want to fluid overload the patient. As we start to see improvement in the renal function I will begin to decrease the IV fluids. As his appetite improves and he is able to take more fluid by mouth we can also decrease the IV fluid. He is receiving antibiotics for the pneumonia as well. 03/14/2019-resolved 03/15/2019-resolved (6) DULCE (acute kidney injury) Is this a current diagnosis for this admission?: Yes Plan: 03/13/2019-as noted above the patient had a significant gastrointestinal illness for the last 5 or 6 days. The acute kidney injury is likely a combination of decreased intake and increased output. He is receiving aggressive hydration. We have serial chemistry panels ordered. As the kidney function improves I will be able to decrease the volume. His urine output appears to be picking up. Con tinue to monitor chemistries as noted above. Consider nephrology consult if the kidneys did not respond to the current treatment plan. 03/14/2019-serum creatinine is 1.7 again. Review of old chemistries reveals that this appears to be his baseline when compared to a blood test in September. Continue to monitor renal function. 03/15/2019-creatinine continues to improve. Will follow closely. As the cardiac catheterization will require IV contrast I will defer to the dealer account manager regarding timing of the catheterization. (7) Hyperglycemia Is this a current diagnosis for this admission?: Yes Plan: 03/13/2019-the patient does not have a history of diabetes. His hemoglobin A1c in fact was 6.1%. I believe he is exhibiting transient hyperglycemia likely due to physiologic stress. I will also need to review his medications to see if any of the medicines are mixed in the dextrose solution. He does have sliding scale on board. This should be enough for control of his sugar. 03/14/2019-the patient had a hyperglycemia on admission. Has no history of diabetes. His Accu-Cheks were all within normal limits and therefore Accu-Cheks and sliding scale were discontinued. 03/15/2019-the patient has no history of diabetes as noted above. Hyperglycemia on admission likely from acute physiologic stress. I have DC'd Accu-Cheks and sliding scale coverage. He should continue on a cardiac diet. (8) Leukocytosis Qualifiers: Leukocytosis type: unspecified Qualified Code(s): D72.829 - Elevated white blood cell count, unspecified Is this a current diagnosis for this admission?: Yes Plan: 03/13/2019-the patient's white blood cell count in fact has gone up. This is likely response to the myocardial infarction but also could be ongoing from the pneumonia since he has only received several doses of antibiotic therapy. We will continue to monitor his white blood cell count. Clinically he looks improv ed and I expect the white blood cell count to follow. 03/14/2019-as noted above the white blood cell count is trending down. It is 17,000 today and was 22,000 yesterday. Continue to monitor. 03/15/2019-continues to improve as noted above. Continue to monitor. (9) Morbid obesity Is this a current diagnosis for this admission?: Yes Plan: 03/13/2019-the patient's BMI is 57. This is certainly a factor in his chronic illness. He will likely participate in cardiac rehab after a cardiac catheterization evaluation. At this point he would benefit from a weight loss program as opposed to self dieting. 03/14/2019-a significant risk factor. Obesity hypoventilation could be contributing to his slow recovery and certainly part of an obstructive sleep apnea picture. It inhibits his activity level as well. He should consider aggressive weight loss with a weight loss management program as opposed to dieting on his own. 03/15/2019-the patient would benefit significantly from weight reduction. At this weight a proper medically managed weight loss program would be of benefit. He might even consider bariatric surgery although this might be contraindicated by his cardiac status. (10) Obstructive sleep apnea Is this a current diagnosis for this admission?: Yes Plan: 03/15/2019-the patient has been observed snoring loudly at night. He exhibits decreases in oxygen saturation. I strongly encouraged him to wear BiPAP at night. He did report a sleep study. The initial trial was inadequate. The patient was rescheduled for a second attempt. The patient did not keep the appointment. Untreated obstructive sleep apnea contributes to obesity as well as pulmonary hypertension and heart disease. The patient needs to take this seriously. - Time Time Spent with patient: 15-24 minutes Medications reviewed and adjusted accordingly: Yes
--- NOTE | 2019-03-15 20:31 | Progress Note ---
Provider Note Provider Note: CARDIOLOGY PROGRESS NOTE by Dr. Sheila Sage on 03/15/2019. OBJECTIVE: The patient feels much improved. He denies any shortness of breath. He has no chest pain or discomfort. There is minimal cough without any production of sputum. There is no wheezing. There is some orthopnea but no PND. The patient's oxygen saturation is excellent on BiPAP at 40%. His chest x-ray shows improvement. His EKG also the T wave inversions are slightly improved. There is no bleeding on IV heparin. There is no TIA CVA symptoms. PHYSICAL EXAMINATION: The patient is morbidly obese. He is well-groomed in no acute distress. Selected Entries 03/15/19 12:00 Temperature 98.2 F Temperature Oral Source Pulse Rate 72 Respiratory 22 Rate Blood Pressure 120/78 [Upper Arm] Blood Pressure 92 Mean [Upper Arm ] Blood Pressure 120 Systolic [Upper Arm] O2 Sat by Pulse 92 Oximetry Oxygen Flow 40 Rate: On nasal BiPAP. HEAD: Is atraumatic normocephalic. EYES: Pupils equal round regular reactive to light and accommodation. Extraocular movements are normal. There is no conjunctival pallor. There is no scleral icterus. EARS: Panic membranes are intact. External auditory canals are clear. NOSE: There is no deviated nasal septum. There is no inflammation of the nasal mucous membrane. MOUTH: Mucous memories of mouth and tongue are very dry. There is no bleeding from the gums. THROAT: There is no redness of the oropharynx. There is no exudates. SKIN: Skin turgor is reduced. There is no petechia or ecchymosis. There is no skin rashes or skin lesions. NECK: Is supple. There is no JVD. Carotids are equal there is no bruit. There is no goiter. There is no adenopathy. There is no accessory muscles of respiration use. Trachea central LUNGS: There are a few dry crackles in the left upper lobe consistent with pneumonia. Rest of the lungs are clear. There is no rales of CHF. There is no rhonchi or wheezing. HEART: S1-S2 is heard. There is no S3 gallop. There is no S4 gallop. There is systolic murmur left sternal border and the apex there is no rub. ABDOMEN: Is obese: Nontender. There is no hepatospleno megaly bowel sounds are well heard. There is no tender areas masses. EXTREMITIES: Femorals are deep. Femorals are diminished. Leg pulses are diminished. There is trace pedal edema bilaterally. There is no cyanosis or clubbing. There is no DVT or cellulitis. 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 PSYCHIATRIC: The patient judgment insight are intact his affect is normal. Labs- All tests 24 hr 03/14/19 03/14/19 03/15/19 21:16 21:16 04:57 WBC RBC Hgb Hct MCV MCH MCHC RDW Plt Count APTT 50.8 H Sodium 135.8 L Potassium 4.0 Chloride 99 Carbon Dioxide 31 H Anion Gap 6 BUN 36 H Creatinine 1.61 H Est GFR ( Amer) 54 L Est GFR (MDRD) Non-Af 45 L Glucose 94 Calcium 9.1 Magnesium Total Bilirubin Direct Bilirubin Neonat Total Bilirubin Neonat Direct Bilirubin Neonat Indirect Bili AST ALT Alkaline Phosphatase Troponin I 0.493 Total Protein Albumin Urine Color Urine Appearance Urine pH Ur Specific Darwin Urine Protein Urine Glucose (UA) Urine Ketones Urine Blood Urine Nitrite Urine Bilirubin Urine Urobilinogen Ur Leukocyte Esterase Urine WBC (Auto) Urine RBC (Auto) Urine Bacteria (Auto) Squamous Epi Cells Auto Urine Mucus (Auto) Urine Ascorbic Acid 03/15/19 03/15/19 03/15/19 04:57 04:57 04:57 WBC 12.6 H RBC 4.65 Hgb 13.2 L Hct 39.3 MCV 85 MCH 28.3 MCHC 33.5 RDW 16.3 H Plt Count 209 APTT Sodium 135.5 L Potassium 4.3 Chloride 98 Carbon Dioxide 29 Anion Gap 9 BUN 35 H Creatinine 1.45 H Est GFR ( Amer) > 60 Est GFR (MDRD) Non-Af 51 L Glucose 91 Calcium 9.0 Magnesium 2.2 Total Bilirubin 0.6 Direct Bilirubin 0.2 Neonat Total Bilirubin Not Reportable Neonat Direct Bilirubin Not Reportable Neonat Indirect Bili Not Reportable AST 40 ALT 66 Alkaline Phosphatase 79 Troponin I 0.399 Total Protein 5.7 L Albumin 3.3 L Urine Color Urine Appearance Urine pH Ur Specific Darwin Urine Protein Urine Glucose (UA) Urine Ketones Urine Blood Urine Nitrite Urine Bilirubin Urine Urobilinogen Ur Leukocyte Esterase Urine WBC (Auto) Urine RBC (Auto) Urine Bacteria (Auto) Squamous Epi Cells Auto Urine Mucus (Auto) Urine Ascorbic Acid 03/15/19 03/15/19 12:20 12:35 WBC RBC Hgb Hct MCV MCH MCHC RDW Plt Count APTT 71.3 H Sodium Potassium Chloride Carbon Dioxide Anion Gap BUN Creatinine Est GFR ( Amer) Est GFR (MDRD) Non-Af Glucose Calcium Magnesium Total Bilirubin Direct Bilirubin Neonat Total Bilirubin Neonat Direct Bilirubin Neonat Indirect Bili AST ALT Alkaline Phosphatase Troponin I Total Protein Albumin Urine Color STRAW Urine Appearance CLEAR Urine pH 6.0 Ur Specific Darwin 1.010 Urine Protein NEGATIVE Urine Glucose (UA) NEGATIVE Urine Ketones NEGATIVE Urine Blood MODERATE H Urine Nitrite NEGATIVE Urine Bilirubin NEGATIVE Urine Urobilinogen NEGATIVE Ur Leukocyte Esterase TRACE H Urine WBC (Auto) 1 Urine RBC (Auto) 20 Urine Bacteria (Auto) TRACE Squamous Epi Cells Auto 2 Urine Mucus (Auto) RARE Urine Ascorbic Acid NEGATIVE Chest X-Ray 03/12/19 18:27 IMPRESSION: Left upper lobe pneumonia. Chest X-Ray 03/13/19 00:00 IMPRESSION: Persistent patchy airspace disease within the left upper lobe compatible with pneumonia. Chest X-Ray 03/15/19 00:00 IMPRESSION: Minimal residual airspace disease in the left upper lobe. EKG: Sinus rhythm. Anterolateral T wave inversions are slightly improved. IMPRESSION RECOMMENDATION: 1. Non-ST elevation [place]: Continue continue the patient's antiplatelet agents. Continue hydration. In view of the patient's blood pressure be being low we will hold off on beta-blockers for now. I am hopeful that the patient's renal function will normalized, at which time the patient can be transferred to a tertiary care center for cardiac catheterization, to assess the patency of the grafts and to look for any de rito coronary artery lesions. We will start the patient on a small dose of Lopressor and increase as tolerated. Note the patient's cardiac status is stable. The patient transferred to a stepdown IMCU bed. 2.Left upper lobe pneumonia: Continue antibiotics most likely this is secondary to aspiration this is improved a lot on the chest x-ray. 3. Acute renal failure secondary to dehydration. The GFR is come up to 42 with IV hydration. Continue IV hydration. Would recommend decrease the patient's IV fluids. The patient's renal functions is very much improved. 4. Hypoxemia: Resolved. Continue the patient on BiPAP. 5. Severe dehydration secondary to food poisoning causing vomiting and diarrhea. At present this seems to resolved. Continue hydration 6. Coronary artery disease: History of left internal mammary artery insertion to the left anterior descending artery. Later once the blood pressure is stabilized would recommend maximizing anti-CAD medication. For now continue antiplatelet agents, along with heparin 7. History of hypertension:: At present blood pressure low normal due to dehydration. 8. Hyperlipidemia: Later continue statin. 9. The patient has symptoms of sleep apnea: Would recommend getting the patient an outpatient sleep study and if positive prescribe a CPAP or BiPAP Medications reviewed. Medications adjusted/added. Medical decision making is of high complexity. 40 minutes spent on this patient with more than 50% of time spent in direct patient care. Medical management and management plans discussed with the attending provider on the case. Will follow.
[2019-03-15] MEDS: ATORVASTATIN CALCIUM 80 MG TABLET PO SCH (22:00)
[2019-03-16] MEDS: PANTOPRAZOLE SODIUM 40 MG TABLET.DR PO SCH ×2 (05:28→18:54)
[2019-03-16] MEDS: AZITHROMYCIN 500 MG in DEXTROSE 5%-WATER 250 ML IV SCH (08:27)
[2019-03-16] MEDS: DOCUSATE SODIUM 100 MG CAPSULE PO SCH ×2 (10:05→18:55)
[2019-03-16] MEDS: CEFTRIAXONE 1 GM/D5W RTU 1 GM/50 ML RTUPB IV SCH (10:05)
[2019-03-16] MEDS: METOPROLOL SUCCINATE 50 MG TAB.SR.24H PO SCH (10:05)
[2019-03-16] MEDS: LOSARTAN POTASSIUM 50 MG TABLET PO SCH (10:05)
[2019-03-16] MEDS: CLOPIDOGREL BISULFATE 75 MG TABLET PO SCH (10:05)
[2019-03-16] MEDS: LACTOBACILLUS ACIDOPHILUS 250 MG TAB PO SCH ×2 (10:05→18:54)
[2019-03-16] MEDS: GUAIFENESIN 600 MG TABLET.SA PO SCH ×2 (10:05→23:03)
[2019-03-16] MEDS: ASPIRIN 81 MG TABLET, ENT COATED PO SCH (10:05)
[2019-03-16] MEDS: HEPARIN SODIUM,PORCINE/D5W 25,000 UNIT/250 ML RTUINJ IV PRN (10:17)
[2019-03-16 14:25] LABS: ANION GAP 9 (5-19); BLOOD UREA NITROGEN 22 mg/dL (7-20); CALCIUM 9.3 mg/dL (8.4-10.2); CARBON DIOXIDE 30 mmol/L (22-30); CHLORIDE 98 mmol/L (98-107); GLUCOSE 133 mg/dL (75-110)
--- NOTE | 2019-03-16 15:30 | PDOC PROGRESS REPORT ---
Subjective Progress Note for:: 03/16/19 Subjective:: This is 53 years old male patient was past medical history of coronary artery disease status post bypass, hypertension, morbid obesity presented with chief complaint of passing out. Reportedly patient passed out after he moved very large bowel. Patient also found the patient to be hypoxic with O2 saturation of 77%. He is blood work shows elevated troponin 1.1 gradually trended down to 0.840. Patient also found to have leukocytosis of 19,000 and is chest x-ray reported as a left upper lobe pneumonia. His elevated troponin is explained by an NSTEMI. Reason For Visit: N STEMI, SYNCOPAL EPISODE, SIRS, PNEUMONIA Physical Exam Vital Signs: Temp Pulse Resp BP Pulse Ox 97.7 F 103 H 19 128/62 H 95 03/16/19 11:40 03/16/19 14:00 03/16/19 12:00 03/16/19 11:40 03/16/19 12:00 Intake & Output 03/15/19 03/16/19 03/17/19 06:59 06:59 06:59 Intake Total 3410 1529 550 Output Total 2850 3995 Balance 560 -2466 550 Weight 196.6 kg 190.4 kg General appearance: PRESENT: no acute distress, morbidly obese Head exam: PRESENT: atraumatic Eye exam: PRESENT: conjunctiva pink Respiratory exam: PRESENT: clear to auscultation alice. ABSENT: rales, rhonchi, wheezes GI/Abdominal exam: PRESENT: normal bowel sounds, soft. ABSENT: distended, guarding, mass, organolmegaly, rebound, tenderness Neurological exam: PRESENT: alert, awake, oriented to person, oriented to place, oriented to time, oriented to situation Results Laboratory Results: 03/15/19 04:57 03/16/19 13:42 03/16/19 13:42 Sodium 136.6 L Potassium 4.0 Chloride 98 Carbon Dioxide 30 Anion Gap 9 BUN 22 H Creatinine 1.28 H Est GFR ( Amer) > 60 Glucose 133 H Calcium 9.3 03/12/19 03/13/19 03/13/19 18:26 01:48 01:48 Creatine Kinase 407 H CK-MB (CK-2) 4.76 H Troponin I 1.170 1.350 NT-Pro-B Natriuret Pep 03/13/19 03/13/1919 05:09 05:09 11:37 Creatine Kinase 383 H 346 H CK-MB (CK-2) 5.27 H Troponin I 1.090 NT-Pro-B Natriuret Pep 6370 H 03/13/19 03/14/19 03/14/19 11:37 08:16 21:16 Creatine Kinase CK-MB (CK-2) 5.65 H Troponin I 0.840 0.513 0.493 NT-Pro-B Natriuret Pep 03/15/19 03/16/19 04:57 13:42 Creatine Kinase CK-MB (CK-2) Troponin I 0.399 0.153 NT-Pro-B Natriuret Pep Impressions: Chest X-Ray 03/15/19 00:00 IMPRESSION: Minimal residual airspace disease in the left upper lobe. Assessment and Plan - Diagnosis (1) Non-ST elevation (NSTEMI) myocardial infarction Is this a current diagnosis for this admission?: Yes Plan: Patient has been managed accordingly with heparin drip which is transition to Lovenox. Aspirin, Plavix and statin. Once patient stable she is going to be transferred to his coronary emergency where he had his bypass surgery. (2) DULCE on stage II CKD. Is this a current diagnosis for this admission?: Yes Plan: Has be resolving. At admission his creatinine was 2.362 date is 1.45. (3) Left upper lobe pneumonia Is this a current diagnosis for this admission?: Yes Plan: Continue Zithromax and ceftriaxone. (4) Vasovagal syncope Is this a current diagnosis for this admission?: Yes Plan: Has resolved (5) Acute hypoxemic respiratory failure Is this a current diagnosis for this admission?: Yes Plan: Has resolved. Continue supplemental oxygen. (6) Morbid obesity with BMI of 50.0-59.9, adult Is this a current diagnosis for this admission?: Yes Plan: Lifestyle modification advised.
[2019-03-16] MEDS ORDERED: LORAZEPAM INJ 2 MG/1 ML VIAL ONE (16:57)
--- NOTE | 2019-03-16 19:10 | EKG REPORT ---
SEVERITY:- ABNORMAL ECG - SINUS RHYTHM NS T CHANGES ANTERIOLATERAL LEADS. : Confirmed by: Sheila Sage MD 16-Mar-2019 19:08:38
[2019-03-16] MEDS: ATORVASTATIN CALCIUM 80 MG TABLET PO SCH (23:04)
[2019-03-17] MEDS: PANTOPRAZOLE SODIUM 40 MG TABLET.DR PO SCH (06:25)
[2019-03-17] MEDS ORDERED: ENOXAPARIN SODIUM INJ 40 MG/0.4 ML DISP.SYRIN SUBCUT SCH (08:00)
[2019-03-17] MEDS: AZITHROMYCIN 500 MG in DEXTROSE 5%-WATER 250 ML IV SCH (08:23)
[2019-03-17] MEDS: DOCUSATE SODIUM 100 MG CAPSULE PO SCH (09:01)
[2019-03-17] MEDS: METOPROLOL SUCCINATE 50 MG TAB.SR.24H PO SCH (09:01)
[2019-03-17] MEDS: GUAIFENESIN 600 MG TABLET.SA PO SCH (09:01)
[2019-03-17] MEDS: LOSARTAN POTASSIUM 50 MG TABLET PO SCH (09:01)
[2019-03-17] MEDS: ASPIRIN 81 MG TABLET, ENT COATED PO SCH (09:01)
[2019-03-17] MEDS: LACTOBACILLUS ACIDOPHILUS 250 MG TAB PO SCH (09:02)
[2019-03-17] MEDS: CLOPIDOGREL BISULFATE 75 MG TABLET PO SCH (09:02)
[2019-03-17] MEDS: CEFTRIAXONE 1 GM/D5W RTU 1 GM/50 ML RTUPB IV SCH (09:50)
--- NOTE | 2019-03-17 10:31 | PDOC TRANSFER SUMMARY ---
General Admission Date/PCP: 03/12/19 19:39 SOFIA FORTUNE MD Transfer Date: 03/17/19 Resuscitation Status: Full Code - Transfer Diagnosis (1) Non-ST elevation (NSTEMI) myocardial infarction Is this a current diagnosis for this admission?: Yes (2) DULCE on stage II CKD. Is this a current diagnosis for this admission?: Yes (3) Left upper lobe pneumonia Is this a current diagnosis for this admission?: Yes (4) Vasovagal syncope Is this a current diagnosis for this admission?: Yes (5) Acute hypoxemic respiratory failure Is this a current diagnosis for this admission?: Yes (6) Morbid obesity with BMI of 50.0-59.9, adult Is this a current diagnosis for this admission?: Yes - Transfer Medications Home Medications: Aspirin [Ecotrin 81 mg EC Tablet] 81 mg PO DAILY 03/12/19 Atorvastatin Calcium [Lipitor 80 mg Tablet] 80 mg PO QHS 03/12/19 Chlorthalidone [Hygroton 25 mg Tablet] 25 mg PO DAILY 03/12/19 Ezetimibe 10 mg PO QHS 03/12/19 Lisinopril 20 mg PO DAILY 03/12/19 Metoprolol Succinate [Toprol Xl 50 mg Tab.sr] 50 mg PO DAILY 03/12/19 Nitroglycerin [Nitrostat 0.4 mg (1/150 Gr) Tabs 25/Bottle] 1 tab SL Q5MP PRN 03/12/19 Sildenafil Citrate [Viagra] 100 mg PO ASDIR PRN 03/12/19 Transfer Medications: Current Medications Acetaminophen (Tylenol 325 Mg Tablet) 650 mg PO Q4HP PRN PRN Reason: For headache, pain or fever Stop: 04/11/19 21:00 Al Hydrox/Mg Hydrox/Simethicone (Maalox Plus Susp 30 Udcup) 30 ml PO Q6HP PRN PRN Reason: HEARTBURN Stop: 04/11/19 20:32 Aspirin (Ecotrin 81 Mg Ec Tablet) 81 mg PO DAILY ASHLIE Stop: 04/12/19 09:59 Last Admin: 03/17/19 09:01 Dose: 81 mg Documented by: Atorvastatin Calcium (Lipitor 80 Mg Tablet) 80 mg PO QHS ASHLIE Stop: 04/12/19 21:59 Last Admin: 03/16/19 23:04 Dose: 80 mg Documented by: Clopidogrel Bisulfate (Plavix 75 Mg Tablet) 75 mg PO DAILY [facility] Stop: 04/12/19 09:59 Last Admin: 03/17/19 09:02 Dose: 75 mg Documented by: Docusate Sodium (Colace 100 Mg Capsule) 100 mg PO BID ASHLIE Stop: 04/12/19 09:59 Last Admin: 03/17/19 09:01 Dose: Not Given Documented by: Enoxaparin Sodium (Lovenox Inj 40 Mg/0.4 Ml Disp.Syrin) 40 mg SUBCUT DAILY ASHLIE Stop: 04/16/19 07:59 Last Admin: 03/17/19 09:01 Dose: 40 mg Documented by: Guaifenesin (Mucinex Sr 600 Mg Tablet.Sa) 600 mg PO Q12 [facility] Stop: 04/11/19 21:59 Last Admin: 03/17/19 09:01 Dose: 600 mg Documented by: Azithromycin 500 mg/ Dextrose 250 mls @ 250 mls/hr IV QAM ASHLIE Stop: 03/20/19 07:59 Last Infusion: 03/17/19 09:52 Dose: Infused Documented by: Ceftriaxone Sodium/Dextrose (Rocephin Rtu 1 Gm/D5w 50 Ml Premix) 1 gm in 50 mls @ 100 mls/hr IV DAILY [facility] Stop: 03/20/19 09:59 Last Admin: 03/17/19 09:50 Dose: 100 mls/hr, 100 mls/hr Documented by: Lactobacillus Acidophilus (Bacid 250 Mg Tablet) 500 mg PO BID [facility] Stop: 04/12/19 17:59 Last Admin: 03/17/19 09:02 Dose: 500 mg Documented by: Levalbuterol HCl (Xopenex Neb 0.63 Mg/3 Ml Ampul) 0.63 mg NEB RTQ2HP PRN PRN Reason: SHORTNESS OF BREATH Stop: 04/11/19 20:32 Last Admin: 03/14/19 10:14 Dose: 0.63 mg Documented by: Losartan Potassium (Cozaar 50 Mg Tablet) 50 mg PO DAILY [facility] Stop: 04/12/19 09:59 Last Admin: 03/17/19 09:01 Dose: 50 mg Documented by: Magnesium Hydroxide (Milk Of Magnesia 30 Ml Udcup) 30 ml PO DAILYP PRN PRN Reason: FOR CONSTIPATION Stop: 04/11/19 20:32 Metoprolol Succinate (Toprol Xl 50 Mg Tab.Sr) 50 mg PO DAILY ASHLIE Stop: 04/12/19 09:59 Last Admin: 03/17/19 09:01 Dose: 50 mg Documented by: Nalbuphine HCl (Nubain Inj 10 Mg/1 Ml Ampule) 10 mg IV Q3HP PRN PRN Reason: FOR PAIN Stop: 03/19/19 21:00 Nitroglycerin (Nitrostat 0.4 Mg (1/150 Gr) Tabs 25/Bottle) 1 tab SL Q5MP PRN PRN Reason: FOR CHEST PAIN Stop: 04/11/19 22:15 Ondansetron HCl (Zofran Inj/Pf 4 Mg/2 Ml Sdv) 4 mg IV Q4HP PRN PRN Reason: FOR NAUSEA/VOMITING Stop: 04/11/19 20:32 Pantoprazole Sodium (Protonix [address] Tablet) 40 mg PO BID@0600,1700 ASHLIE Stop: 04/12/19 05:59 Last Admin: 03/17/19 06:25 Dose: 40 mg Documented by: Sodium Chloride (Saline Flush 2.5 Ml Monoject Prefil Syrin) 2.5 ml IV Q8 ASHLIE Stop: 04/11/19 21:59 Last Admin: 03/17/19 06:25 Dose: 2.5 ml Documented by: Temazepam (Restoril 15 Mg Capsule) 30 mg PO HSP PRN PRN Reason: SLEEP OR INSOMNIA Stop: 03/19/19 20:32 - Allergies Allergies/Adverse Reactions: No Known Allergies Allergy (Unverified 10/11/15 14:05) Hospital Course Hospital Course: HISTORY PRESENT ILLNESS: Patient is a morbidly obese 53-year-old male with known history of coronary artery disease, with a history of off-pump FIELD to the LAD in 2017, hypertension, and hyperlipidemia states since the past 5 to 6 days prior to admission had food poisoning and had incessant watery diarrhea and nausea and vomiting. The patient states although he tried to drink as much Gatorade as he could he could not keep much in. The patient subsequently went to the to the toilet and subsequently does not remember what happened. His family found him to be unresponsive and also when woken up he was very somnolent and very confused suggesting that this is been prolonged state of altered mental status rather than syncope. He was also found to have severe hypoxemia in spite of BiPAP. He was brought to the emergency room where he was found to be in acute renal failure, he was hypoxic but that subsequently with treatment did improve to acceptable oxygen levels. He denies any chest pain or discomfort. He has no prior history of chronic kidney disease, but the patient came in with a GFR of 29 clearly secondary to acute renal failure due to dehydration. The patient denies any anginal symptoms. There is chronic orthopnea present but no PND. The patient did shortness of breath without wheezing, and also did have cough productive of sputum at present which he says is very scanty and difficult to bring up. He has no palpitations. He has trace to mild chronic leg edema which is not increased. Of note the patient is EKG changes on the anterolateral territory, most likely this area supplied by the LAD which is been bypassed with a left internal mammary artery. The patient's troponin is trending down. And since his symptom onset about 5 days ago and during this admission is no anginal chest pains. But in view of the patient's significant ischemic anterolateral T wave inversion, and elevated troponin I would have to treat this as a non-ST elevation ME. 03/17/2019:This is 53 years old male patient was past medical history of coronary artery disease status post bypass, hypertension, morbid obesity presented with chief complaint of passing out. Reportedly patient passed out after he moved very large bowel. Patient also found the patient to be hypoxic with O2 saturation of 77%. He is blood work shows elevated troponin 1.1 grad ually trended down to 0.840. Patient also found to have leukocytosis of 19,000 and is chest x-ray reported as a left upper lobe pneumonia. His elevated troponin is explained by an NSTEMI. Patient has been managed with heparin drip, aspirin, Plavix, metoprolol succinate, losartan and Lipitor. Currently patient is chest pain-free his vital signs and blood works are unremarkable. Patient has been evaluated and managed by also Dr. Sage who recommended transfer to his coronary emergency where patient had coronary artery bypass graft for cardiac catheterization. This morning I contacted Dr. Castro at [facility] motor vehicle inspector who accepted the patient. Physical Exam Vital Signs: Temp Pulse Resp BP Pulse Ox 97.9 F 95 18 118/66 93 03/17/19 09:05 03/17/19 09:05 03/17/19 09:05 03/17/19 09:55 03/17/19 09:05 Intake & Output 03/16/19 03/17/19 03/18/19 06:59 06:59 06:59 Intake Total 1529 2060 250 Output Total 3995 1300 Balance -2466 760 250 Weight 190.4 kg 189 kg General appearance: PRESENT: no acute distress Head exam: PRESENT: atraumatic Mouth exam: PRESENT: moist Neck exam: ABSENT: carotid bruit, JVD, lymphadenopathy, thyromegaly Respiratory exam: PRESENT: clear to auscultation alice. ABSENT: rales, rhonchi, wheezes Cardiovascular exam: PRESENT: RRR. ABSENT: diastolic murmur, rubs, systolic murmur GI/Abdominal exam: PRESENT: normal bowel sounds, soft. ABSENT: distended, guarding, mass, organolmegaly, rebound, tenderness Neurological exam: PRESENT: alert, awake, oriented to person, oriented to place, oriented to time, oriented to situation Results Laboratory Results: 03/15/19 04:57 03/16/19 13:42 03/16/19 13:42 Sodium 136.6 L Potassium 4.0 Chloride 98 Carbon Dioxide 30 Anion Gap 9 BUN 22 H Creatinine 1.28 H Est GFR ( Amer) > 60 Glucose 133 H Calcium 9.3 03/12/19 03/13/19 03/13/19 18:26 01:48 01:48 Creatine Kinase 407 H CK-MB (CK-2) 4.76 H Troponin I 1.170 1.350 NT-Pro-B Natriuret Pep 03/13/19 03/13/19 03/13/19 05:09 05:09 11:37 Creatine Kinase 383 H 346 H CK-MB (CK-2) 5.27 H Troponin I 1.090 NT-Pro-B Natriuret Pep 6370 H 03/13/19 03/14/19 03/14/19 11:37 08:16 21:16 Creatine Kinase CK-MB (CK-2) 5.65 H Troponin I 0.840 0.513 0.493 NT-Pro-B Natriuret Pep 03/15/19 03/16/19 04:57 13:42 Creatine Kinase CK-MB (CK-2) Troponin I 0.399 0.153 NT-Pro-B Natriuret Pep Impressions: Chest X-Ray 03/15/19 00:00 IMPRESSION: Minimal residual airspace disease in the left upper lobe.
[2019-03-17 12:20] VITALS: BP 111/69
--- NOTE | 2019-03-17 14:18 | Progress Note ---
Provider Note Provider Note: CARDIOLOGY PROGRESS NOTE by Dr. Sheila Sage on 03/16/2019. SUBJECTIVE: Patient denies any chest pain or discomfort. There is no PND orthopnea. There is no cough or sputum production. There is no arrhythmia seen on the monitor. The patient is off the full dose IV heparin. He is on Lovenox at DVT prophylaxis doses. There is no TIA CVA symptoms. PHYSICAL EXAMINATION: The patient is morbidly obese. In no acute distress. Selected Entries 03/16/19 11:40 Temperature 97.7 F Temperature Oral Source Pulse Rate 79 Respiratory 20 Rate Blood Pressure 128/62 H Blood Pressure 84 Mean BP Location Right Arm BP Position Supine O2 Sat by Pulse 92 Oximetry Oxygen Delivery Room Air Method HEAD: Is atraumatic normocephalic. EYES: Pupils equal round regular reactive to light and accommodation. Extraocular movements are normal. There is no conjunctival pallor. There is no scleral icterus. EARS: Panic membranes are intact. External auditory canals are clear. NOSE: There is no deviated nasal septum. There is no inflammation of the nasal mucous membrane. MOUTH: Mucous memories of mouth and tongue are very dry. There is no bleeding from the gums. THROAT: There is no redness of the oropharynx. There is no exudates. SKIN: Skin turgor is reduced. There is no petechia or ecchymosis. There is no skin rashes or skin lesions. NECK: Is supple. There is no JVD. Carotids are equal there is no bruit. There is no goiter. There is no adenopathy. There is no accessory muscles of respiration use. Trachea central LUNGS: There are a few dry crackles in the left upper lobe consistent with pneumonia. Rest of the lungs are clear. There is no rales of CHF. There is no rhonchi or wheezing. HEART: S1-S2 is heard. There is no S3 gallop. There is no S4 gallop. There is systolic murmur left sternal border and the apex there is no rub. ABDOMEN: Is o bese: Nontender. There is no hepatospleno megaly bowel sounds are well heard. There is no tender areas masses. EXTREMITIES: Femorals are deep. Femorals are diminished. Leg pulses are diminished. There is trace pedal edema bilaterally. There is no cyanosis or clubbing. There is no DVT or cellulitis. DIRECTOR RECORDS MANAGEMENT: The patient is conscious awake alert oriented x3 with no focal deficits. PSYCHIATRIC: The patient judgment insight are intact his affect is normal. 03/15/19 03/16/19 03/16/19 04:57 13:42 13:42 Sodium 136.6 L Potassium 4.0 Chloride 98 Carbon Dioxide 30 Anion Gap 9 BUN 22 H Creatinine 1.28 H Est GFR (MDRD) Non-Af 58 L Glucose 133 H Calcium 9.3 Troponin I 0.399 0.153 EKG: Shows sinus rhythm. The T wave inversion anterolateral leads is much improved and is only nonspecific T changes there. MPRESSION RECOMMENDATION: 1. Non-ST elevation [place]: Continue continue the patient's antiplatelet agents. Continue hydration. Continue beta-blockers. Will discuss with the [facility] cardiology about transferring the patient for cardiac catheterization tomorrow. 2.Left upper lobe pneumonia: Continue antibiotics most likely this is secondary to aspiration this is improved a lot on the chest x-ray. 3. Acute renal failure secondary to dehydration. The GFR is come up to 42 with IV hydration. Continue IV hydration. Would recommend decrease the patient's IV fluids. The patient's renal functions is very much improved. 4. Hypoxemia: Resolved. Continue the patient on BiPAP. 5. Severe dehydration secondary to food poisoning causing vomiting and diarrhea. At present this seems to resolved. Continue hydration 6. Coronary artery disease: History of left internal mammary artery insertion to the left anterior descending artery. Later once the blood pressure is stabilized would recommend maximizing anti-CAD medication. For now continue antiplatelet agents, along with heparin 7. History of hypertension:: At present blood pressure low normal due to dehydration. 8. Hyperlipidemia: Later continue statin. 9. The patient has symptoms of sleep apnea: Would recommend getting the patient an outpatient sleep study and if positive prescribe a CPAP or BiPAP Medications reviewed. Management plan and medications management discussed with attending physician on the case. Medical decision making is of moderate complexity. 40 minutes spent on this patient more than 50% of the time spent in direct patient care. Will follow
--- NOTE | 2019-03-17 14:24 | Progress Note ---
Provider Note Provider Note: CARDIOLOGY PROGRESS NOTE by Sheila Sage on 03/17/2019. SUBJECTIVE: The patient denies any chest pain or discomfort. There is no shortness of breath. There is no PND orthopnea. There is no leg edema. The patient's oxygen saturation is good on nasal cannula. The patient uses nasal BiPAP PRN. There is no arrhythmia seen on the monitor. There is no cough or wheezing. PHYSICAL EXAMINATION: The patient is morbidly obese. In no acute distress. He is well-groomed. Selected Entries 03/17/19 10:58 Temperature 98.2 F Temperature Oral Source Pulse Rate 80 Respiratory 20 Rate Blood Pressure 111/69 Blood Pressure 83 Mean BP Location Right Arm BP Position Sitting O2 Sat by Pulse 97 Oximetry Oxygen Flow 6.00 Rate Oxygen Delivery Nasal Cannula Method HEAD: Is atraumatic normocephalic. EYES: Pupils equal round regular reactive to light and accommodation. Extraocular movements are normal. There is no conjunctival pallor. There is no scleral icterus. EARS: Panic membranes are intact. External auditory canals are clear. NOSE: There is no deviated nasal septum. There is no inflammation of the nasal mucous membrane. MOUTH: Mucous memories of mouth and tongue are very dry. There is no bleeding from the gums. THROAT: There is no redness of the oropharynx. There is no exudates. SKIN: Skin turgor is reduced. There is no petechia or ecchymosis. There is no skin rashes or skin lesions. NECK: Is supple. There is no JVD. Carotids are equal there is no bruit. There is no goiter. There is no adenopathy. There is no accessory muscles of respiration use. Trachea central LUNGS: There are a few dry crackles in the left upper lobe consistent with pneumonia. Rest of the lungs are clear. There is no rales of CHF. There is no rhonchi or wheezing. HEART: S1-S2 is heard. There is no S3 gallop. There is no S4 gallop. There is systolic murmur left sternal border and the apex there is no rub. ABDOMEN: Is obese: Nontender. There is no hepatospleno megaly bowel sounds are well heard. There is no tender areas masses. EXTREMITIES: Femorals are deep. Femorals are diminished. Leg pulses are diminished. There is trace pedal edema bilaterally. There is no cyanosis or clubbing. There is no DVT or cellulitis. 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 PSYCHIATRIC: The patient judgment insight are intact his affect is normal. IMPRESSION RECOMMENDATION: 1. Non-ST elevation [place]: Continue continue the patient's antiplatelet agents. Continue hydration. Continue beta-kellie. The patient has been accepted in transfer at [facility]. 2.Left upper lobe pneumonia: Continue antibiotics most likely this is secondary to aspiration this is improved a lot on the chest x-ray. 3. Acute renal failure secondary to dehydration. The GFR is come up to 42 with IV hydration. Continue IV hydration. Would recommend decrease the patient's IV fluids. The patient's renal functions is very much improved. 4. Hypoxemia: Resolved. Continue the patient on BiPAP. 5. Severe dehydration secondary to food poisoning causing vomiting and diarrhea. At present this seems to resolved. Continue hydration 6. Coronary artery disease: History of left internal mammary artery insertion to the left anterior descending artery. Later once the blood pressure is stabilized would recommend maximizing anti-CAD medication. For now continue antiplatelet agents, along with heparin 7. History of hypertension:: At present blood pressure low normal due to dehydration. 8. Hyperlipidemia: Later continue statin. 9. The patient has symptoms of sleep apnea: Would recommend getting the patient an outpatient sleep study and if positive prescribe a CPAP or BiPAP Occasions reviewed. Management plan discussed with attending patient on the case. Medical decision making is now of moderate complexity. 40 minutes spent on this patient more than 50% time spent in direct patient care. Will sign off.
== END 2019-03-17 16:24 | disposition short-term general hospital (02) | DRG 280 ==
LOC: ER 18:20 → EH 19:39 → ICU 03-13 03:09 → 3W 03-15 14:07
PROVIDERS: ADMIT Emergency Medicine; ATTEND Emergency Medicine
DX: I21.4 Non-ST elevation (NSTEMI) myocardial infarction (principal); J96.01 Acute respiratory failure with hypoxia; J18.1 Lobar pneumonia, unspecified organism; N17.9 Acute kidney failure, unspecified; Z68.43 Body mass index [BMI] 50.0-59.9, adult; I25.10 Atherosclerotic heart disease of native coronary artery without angina pectoris; E78.5 Hyperlipidemia, unspecified; E86.0 Dehydration; I12.9 Hypertensive chronic kidney disease with stage 1 through stage 4 chronic kidney disease, or unspecified chronic kidney disease; N18.2 Chronic kidney disease, stage 2 (mild); R73.9 Hyperglycemia, unspecified; R19.7 Diarrhea, unspecified; G47.33 Obstructive sleep apnea (adult) (pediatric); R55 Syncope and collapse; E66.01 Morbid (severe) obesity due to excess calories; Z95.1 Presence of aortocoronary bypass graft
CPT/HCPCS: 36415; 71045; 80048; 80053; 80061; 81001; 82550; 82553; 82803; 82962; 83036; 83605; 83735; 83880; 84484; 85025; 85027; 85610; 85730; 87040; 87086; 93005; 93010; 94660; 94668; 94799; 99291; J0456; J0696; J1644; J1650; J1815; J2405; J2543; J3370; J3490; J7040; J7060; J7120; J7121; J7614; S0028

== ENCOUNTER 2019-03-30 12:06 | Emergency (ER) | payer BC ==
--- NOTE | 2019-03-30 13:34 | ER Document Report ---
ED Medical Screen (RME) - General Chief Complaint: Breathing Difficulty Stated Complaint: DIFFICULTY BREATHING Time Seen by Provider: 03/30/19 13:27 Primary Care Provider: SOFIA FORTUNE MD [Primary Care Provider] - Follow up as needed Mode of Arrival: Ambulatory Information source: Patient Notes: 53-year-old male presented to ED for complaint of shortness of breath for about 3 days. He states he was pneumonia about a week and a half ago was sent from here to go and is now on oxygen nasal cannula at home. Patient is alert oriented respirations regular at this time while he sitting here, he said if he gets up or walks he gets very short of breath. O2 sat sat is fluctuating between 93 and 95% patient states this is his baseline. Lungs sounds are diminished bilaterally I have greeted and performed a rapid initial assessment of this patient. A comprehensive ED assessment and evaluation of the patient, analysis of test results and completion of medical decision making process will be conducted by an additional ED providers. TRAVEL OUTSIDE OF THE [place] IN LAST 30 DAYS: No - Related Data Allergies/Adverse Reactions: No Known Allergies Allergy (Unverified 10/11/15 14:05) Past Medical History - Past Medical History Cardiac Medical History: Reports: Hx Coronary Artery Disease, Hx Hypercholesterolemia, Hx Hypertension Pulmonary Medical History: Denies: Hx Asthma, Hx COPD, Hx Respiratory Failure Neurological Medical History: Denies: Hx Seizures Endocrine Medical History: Denies: Hx Diabetes Mellitus Type 1, Hx Diabetes Mellitus Type 2, Hx Hyperthyroidism, Hx Hypothyroidism Renal/ Medical History: Denies: Hx Peritoneal Dialysis GI Medical History: Denies: Hx Cirrhosis, Hx Crohn's Disease, Hx Hepatitis, Hx Ulcerative Colitis Musculoskeltal Medical History: Denies Hx Arthritis, Denies Hx Gout Skin Medical History: Denies Hx Eczema, Denies Hx Psoriasis Infectious Medical History: Denies: Hx Hepatitis Past Surgical History: Reports: Hx Cardiac Catheterization, Hx Coronary Artery Bypass Graft - Immunizations Immunizations up to date: Yes Hx Diphtheria, Pertussis, Tetanus Vaccination: No Physical Exam - Vital signs Vitals: Temp Pulse Resp BP Pulse Ox 97.6 F 101 H 20 149/79 H 91 L 03/30/19 12:12 03/30/19 12:12 03/30/19 12:12 03/30/19 12:12 03/30/19 12:12 Course - Vital Signs Vital signs: Temp Pulse Resp BP Pulse Ox 97.6 F 101 H 26 H 140/96 H 92 03/30/19 12:12 03/30/19 12:12 03/30/19 16:01 03/30/19 16:01 03/30/19 16:01 - Laboratory Result Diagrams: 03/30/19 13:30 03/30/19 13:30 Laboratory results interpreted by me: 03/30/19 03/30/19 03/30/19 13:30 13:30 13:30 WBC 10.6 H RDW 15.8 H BUN 22 H Creatinine 1.37 H Est GFR (MDRD) Non-Af 54 L NT-Pro-B Natriuret Pep 1110 H Doctor's Discharge - Discharge Clinical Impression: Bronchitis, Chronic respiratory failure Condition: Good Disposition: HOME, SELF-CARE Instructions: Bronchitis ([facility]), High Blood Pressure ([facility]) Additional Instructions: See your doctor in followup. Rest. Take your medicine as directed. Please return here for any problems or any concerns. Prescriptions: Benzonatate [Tessalon Perle 100 mg Capsule] 100 mg PO Q8HP PRN #21 cap PRN Reason: Cephalexin Monohydrate [Keflex 500 mg Capsule] 500 mg PO TID #30 capsule Referrals: SOFIA FORTUNE MD [Primary Care Provider] - Follow up as needed
[2019-03-30 13:56] LABS: HEMATOCRIT 46.2 % (37.9-51.0); HEMOGLOBIN 15.5 g/dL (13.5-17.0); MEAN CORPUSCULAR HEMOGLOBIN 28.4 pg (27.0-33.4); MEAN CORPUSCULAR HGB CONC 33.5 g/dL (32.0-36.0); MEAN CORPUSCULAR VOLUME 85 fl (80-97); PLATELET COUNT 285 10^3/uL (150-450); RED BLOOD COUNT 5.45 10^6/uL (4.35-5.55); RED CELL DISTRIBUTION WIDTH 15.8 % (11.5-14.0); WHITE BLOOD COUNT 10.6 10^3/uL (4.0-10.5)
[2019-03-30 14:05] LABS: ALBUMIN 4.4 g/dL (3.5-5.0); ALKALINE PHOSPHATASE 110 U/L (38-126); ANION GAP 10 (5-19); ASPARTATE AMINO TRANSFERASE 39 U/L (17-59); BILIRUBIN,DIRECT 0.2 mg/dL (0.0-0.4); BILIRUBIN,TOTAL 0.8 mg/dL (0.2-1.3); BLOOD UREA NITROGEN 22 mg/dL (7-20); CALCIUM 10.2 mg/dL (8.4-10.2); CARBON DIOXIDE 27 mmol/L (22-30); CHLORIDE 102 mmol/L (98-107); CREATINE KINASE 88 U/L (55-170); GLUCOSE 106 mg/dL (75-110); POTASSIUM 4.8 mmol/L (3.6-5.0); TOTAL PROTEIN 7.4 g/dL (6.3-8.2)
[2019-03-30 14:17] LABS: CREATINE KINASE MB 1.82 ng/mL (<4.55)
[2019-03-30 14:23] LABS: ABSOLUTE LYMPHOCYTES# (MANUAL) 2.4 10^3/uL (0.5-4.7); ABSOLUTE MONOCYTES # (MANUAL) 0.6 10^3/uL (0.1-1.4); BASOPHILS % (MANUAL) 1 % (0-2); EOSINOPHILS % (MANUAL) 1 % (0-6); LYMPHOCYTES % (MANUAL) 23 % (13-45); MONOCYTES % (MANUAL) 6 % (3-13); SEGMENTED NEUTROPHILS % (MAN) 69 % (42-78); TOTAL CELLS COUNTED 100; TROPONIN I 0.359 ng/mL
[2019-03-30 14:24] LABS: ANISOCYTOSIS SLIGHT; OVALOCYTES SLIGHT; POIKILOCYTOSIS SLIGHT; POLYCHROMASIA SLIGHT
[2019-03-30 14:25] LABS: PLATELET COMMENT ADEQUATE
--- NOTE | 2019-03-30 14:25 | RADIOLOGY REPORT (SQ) ---
EXAM DESCRIPTION: CHEST 2 VIEWS COMPLETED DATE/TIME: 03/30/2019 2:10 pm REASON FOR STUDY: short of breath COMPARISON: 03/15/2019 EXAM PARAMETERS: NUMBER OF VIEWS: two views TECHNIQUE: Digital Frontal and Lateral radiographic views of the chest acquired. RADIATION DOSE: NA LIMITATIONS: none FINDINGS: LUNGS AND PLEURA: No opacities, masses or pneumothorax. No pleural effusion. MEDIASTINUM AND HILAR STRUCTURES: No masses or contour abnormalities. HEART AND VASCULAR STRUCTURES: Cardiomegaly status post median sternotomy. BONES: Disc degenerative disease of the thoracic spine. HARDWARE: None in the chest. OTHER: No other significant finding. IMPRESSION: Cardiomegaly without acute abnormality of the lungs. No focal airspace opacity. TECHNICAL DOCUMENTATION: JOB ID: [id number] [employer]- All Rights Reserved Reading location - IP/workstation name: [email or web address]
--- NOTE | 2019-03-30 15:26 | ER Document Report ---
ED General - General Chief Complaint: Breathing Difficulty Stated Complaint: DIFFICULTY BREATHING Time Seen by Provider: 03/30/19 13:27 Primary Care Provider: SOFIA FORTUNE MD [Primary Care Provider] - Follow up as needed Mode of Arrival: Ambulatory TRAVEL OUTSIDE OF THE [place] IN LAST 30 DAYS: No - HPI Patient complains to provider of: cough Onset: Just prior to arrival Onset/Duration: Gradual Severity: Moderate Context: 53 year old male with complaints of cough that brings up a foul tasting sputum into his throat. No fever or chills. He lives with chronic resp failure and wears 2-4 liters of Oxygen all the time. Additional comorbidities include cad, morbid obesity and htn. Nonsmoker. Exacerbated by: Denies Relieved by: Denies - Related Data Allergies/Adverse Reactions: No Known Allergies Allergy (Unverified 10/11/15 14:05) Past Medical History - General Information source: Patient - Social History Smoking Status: Former Smoker Family History: CAD, CVA, DM, Hyperlipidemia, Hypertension, Malignancy Patient has suicidal ideation: No Patient has homicidal ideation: No - Past Medical History Cardiac Medical History: Reports: Hx Coronary Artery Disease, Hx Hypercholesterolemia, Hx Hypertension Denies: Hx Atrial Fibrillation, Hx Congestive Heart Failure, Hx Heart Attack Pulmonary Medical History: Denies: Hx Asthma, Hx COPD, Hx Respiratory Failure Neurological Medical History: Denies: Hx Seizures Endocrine Medical History: Denies: Hx Diabetes Mellitus Type 1, Hx Diabetes Mellitus Type 2, Hx Hyperthyroidism, Hx Hypothyroidism Renal/ Medical History: Denies: Hx Peritoneal Dialysis GI Medical History: Denies: Hx Cirrhosis, Hx Crohn's Disease, Hx Hepatitis, Hx Ulcerative Colitis Musculoskeletal Medical History: Denies Hx Arthritis, Denies Hx Gout Skin Medical History: Denies Hx Eczema, Denies Hx Psoriasis Infectious Medical History: Denies: Hx Hepatitis Past Surgical History: Reports: Hx Cardiac Catheterization, Hx Cardiac Surgery - double bypass, Hx Coronary Artery Bypass Graft - Immunizations Immunizations up to date: Yes Hx Diphtheria, Pertussis, Tetanus Vaccination: No Review of Systems - Review of Systems Constitutional: No symptoms reported EENT: No symptoms reported Cardiovascular: No symptoms reported. denies: Chest pain Respiratory: See HPI, Cough Gastrointestinal: No symptoms reported Genitourinary: No symptoms reported Male Genitourinary: No symptoms reported Musculoskeletal: No symptoms reported Skin: No symptoms reported Hematologic/Lymphatic: No symptoms reported Neurological/Psychological: No symptoms reported Physical Exam - Vital signs Vitals: Temp Pulse Resp BP Pulse Ox 97.6 F 101 H 20 149/79 H 91 L 03/30/19 12:12 03/30/19 12:12 03/30/19 12:12 03/30/19 12:12 03/30/19 12:12 Interpretation: Normal - General General appearance: Appears well, Alert - HEENT Head: Normocephalic, Atraumatic Eyes: Normal Pupils: PERRL Sinus: Normal Nasal: Normal Mouth/Lips: Normal Pharynx: Normal - Respiratory Respiratory status: No respiratory distress Chest status: Nontender Breath sounds: Normal Chest palpation: Normal - Cardiovascular Rhythm: Regular Heart sounds: Normal auscultation Murmur: No - Abdominal Inspection: Normal Distension: No distension Bowel sounds: Normal Tenderness: Nontender Organomegaly: No organomegaly - Back Back: Nontender - Extremities General upper extremity: Normal inspection, Nontender, Normal color, Normal ROM, Normal temperature General lower extremity: Normal inspection, Nontender, Normal color, Normal ROM, Normal temperature, Normal weight bearing. No: Thony's sign - Neurological Neuro grossly intact: Yes Cognition: Normal Orientation: AAOx4 Erika Coma Scale Eye Opening: Spontaneous Erika Coma Scale Verbal: Oriented Erika Coma Scale Motor: Obeys Commands [place] Coma Scale Total: 15 Speech: Normal Motor strength normal: LUE, RUE, LLE, RLE Sensory: Normal - Psychological Associated symptoms: Normal affect, Normal mood - Skin Skin Temperature: Warm Skin Moisture: Dry Skin Color: Normal Course - Re-evaluation Re-evalutation: 03/30/19 15:58 While his Trop his mildly elevated this seems to be the case more often than not. We discussed follow up. We reviewed his course at [facility] after transfer from here back in February. No intervention done and feeling was he could be medically managed at that time. No fever or sign of serious illness but risk for bacterial illness is there and will treat for this. He has return precautions. - Vital Signs Vital signs: Temp Pulse Resp BP Pulse Ox 97.6 F 101 H 19 148/93 H 93 03/30/19 12:12 03/30/19 12:12 03/30/19 15:46 03/30/19 15:46 03/30/19 15:46 - Laboratory Result Diagrams: 03/30/19 13:30 03/30/19 13:30 Laboratory results interpreted by me: 03/30/19 03/30/19 03/30/19 13:30 13:30 13:30 WBC 10.6 H RDW 15.8 H BUN 22 H Creatinine 1.37 H Est GFR (MDRD) Non-Af 54 L NT-Pro-B Natriuret Pep 1110 H - Diagnostic Test Radiology reviewed: Reports reviewed - EKG Interpretation by Me EKG shows normal: Sinus rhythm Rate: Normal Rhythm: NSR - NSR Nl [place] [address] elevation or depression my interpretation. Similar to previous from 03/16 Discharge - Discharge Clinical Impression: Bronchitis Chronic respiratory failure Qualifiers: Respiratory failure complication: hypoxia Qualified Code(s): J96.11 - Chronic respiratory failure with hypoxia Condition: Good Disposition: HOME, SELF-CARE Instructions: Bronchitis ([facility]), High Blood Pressure ([facility]) Additional Instructions: See your doctor in followup. Rest. Take your medicine as directed. Please return here for any problems or any concerns. Prescriptions: Benzonatate [Tessalon Perle 100 mg Capsule] 100 mg PO Q8HP PRN #21 cap PRN Reason: Cephalexin Monohydrate [Keflex 500 mg Capsule] 500 mg PO TID #30 capsule Referrals: SOFIA FORTUNE MD [Primary Care Provider] - Follow up as needed
[2019-03-30 16:06] VITALS: BP 140/96
--- NOTE | 2019-03-31 18:49 | EKG REPORT ---
SEVERITY:- ABNORMAL ECG - SINUS RHYTHM PROBABLE INFERIOR INFARCT, AGE INDETERMINATE LATERAL LEADS ARE ALSO INVOLVED : Confirmed by: Kirk Perez 31-Mar-2019 18:48:21
== END 2019-03-30 16:19 | disposition home or self-care (01) ==
LOC: ER 12:06
DX: J40 Bronchitis, not specified as acute or chronic (principal); J96.11 Chronic respiratory failure with hypoxia; R05 Cough; Z99.81 Dependence on supplemental oxygen; I25.10 Atherosclerotic heart disease of native coronary artery without angina pectoris; E66.01 Morbid (severe) obesity due to excess calories; I10 Essential (primary) hypertension; Z87.891 Personal history of nicotine dependence; Z95.1 Presence of aortocoronary bypass graft
CPT/HCPCS: 36415; 71046; 80053; 82550; 82553; 83880; 84484; 85025; 93005; 93010; 99285